=== PATIENT | female | born 1940 | race Caucasian/White ===

== ENCOUNTER 2017-08-08 15:43 | Inpatient (IN) | payer MEDICARE, OTHER ==
[~2017-08-08] VITALS: Ht 157.5 cm; Wt 59.1 kg
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
--- NOTE | ~2017-08-08 | OP ---
PATIENT NAME: MIKI JACKSON MEDICAL RECORD: [id number] :38 LOCATION:[facility] ADMISSION DATE:08/08/17 SURGEON: CAITIE CID MD DATE OF OPERATION: 08/09/2017 PREOPERATIVE DIAGNOSIS: Left proximal humerus fracture. POSTOPERATIVE DIAGNOSIS: Left proximal humerus fracture. PROCEDURE: Open reduction internal fixation of left proximal humerus fracture. SURGEON: Caitie Cid MD ANESTHESIA: General. INTRAOPERATIVE COMPLICATIONS: None. SUMMARY OF PATHOLOGIC FINDINGS: The patient had a reverse obliquity femoral neck fracture that required a combination of cables and plating for fixation. IMPLANTS USED: AxSOS 3 periarticular proximal humeral plate. OPERATIVE SUMMARY IN DETAIL: After obtaining the appropriate preoperative orthopedic surgery consent as well as anesthetic consultation, evaluation and clearance, the patient was brought to the operating room and placed on the operating table in supine position. After general laryngeal mask was administered, the patient was placed in beachchair position. All pressure points were padded. She was held firmly to the operating table using the vacuum pack suction system. Left upper extremity and shoulder were then prepped and draped in routine sterile fashion. The arm was held in the Trimano arm holding device. Deltopectoral incision was taken down to the level of the fracture itself. She had rotator cuff intact completely around the humeral head and had fractured in a reverse obliquity pattern just distal to that. The arm was held in a reduced position. A cable was placed to further stabilize the reduction and then an AxSOS plate was then placed with serial and sequential drill and fill using combination of both compression and locking screws. After final fixation was complete, fluoroscopy was taken that showed no screws heads or no screw ends were into the articular surface. Final radiographs were taken and submitted for radiologist review. The wound was copiously irrigated and closed with #1 Vicryl followed by 2-0 Vicryl and skin shabbir. Sterile dressings were applied. The patient was awakened and taken to the recovery room in stable condition. All final needle and sponge counts were correct. TRANSINT:[id number] Voice Confirmation ID: [id number] DOCUMENT ID: [id number] CAITIE CID MD at 1659 CC: [id number] DICTATION DATE: 08/09/17 1410 CLOUD ENGINEER: 08/09/171910 ADM IN [facility] [address] [id number]
[2017-08-08 16:29] LABS: BASOPHILS 0.7 % (0-2); EOSINOPHILS 3.2 % (0-7); HEMATOCRIT 33.8 % (36.0-48.0); HEMOGLOBIN 10.8 g/dL (12-16); IMMATURE GRANULOCYTES 0.4 % (0-5); LYMPHOCYTES 26.9 % (15-50); MCH 30.8 pg (26.0-34.0); MCV 96.3 fL (80.0-100.0); MEAN PLATELET VOLUME 11.1 fL (7.4-10.4); MONOCYTES 6.2 % (2-11); NEUTROPHILS 62.6 % (40-80); PLATELET COUNT 265 10x3/uL (130-400); RBC 3.51 10x6/uL (4.00-5.40); RDW 13.6 % (11.5-14.5); WBC 7.5 10x3/uL (4.8-10.8)
[2017-08-08 16:46] LABS: ALBUMIN 3.5 g/dL (3.4-5.0); ALKALINE PHOSPHATASE 87 U/L (46-116); ALT (SGPT) 15 U/L (10-68); BILIRUBIN - TOTAL 0.45 mg/dL (0.2-1.3); CALC OSMOLALITY 283 mosm/kg (275-300); CALCIUM 8.7 mg/dL (8.5-10.1); CARBON DIOXIDE 28.1 mmol/L (21.0-32.0); CHLORIDE - SERUM 104 mmol/L (98-107); CREATININE - SERUM 1.6 mg/dL (0.6-1.3); GLUCOSE 112 mg/dL (74-106); POTASSIUM - SERUM 5.2 mmol/L (3.5-5.1); PROTEIN - SERUM 6.5 g/dL (6.4-8.2); SODIUM 140 mmol/L (136-145); UREA NITROGEN 25 mg/dL (7-18); eGFR NON AFRICAN AMERICAN 33 mL/min (90-120)
[2017-08-08 16:55] LABS: PRO BNP 438 pg/mL (0-450); THYROID STIMULATING HORMONE 2.66 uIU/mL (0.36-3.74); TROPONIN-I < 0.017 ng/mL (0.000-0.060)
[2017-08-08 21:53] VITALS: BP 124/62
[2017-08-08 22:59] VITALS: BP 160/63; Ht 157.5 cm; Wt 59.1 kg
[2017-08-08 23:46] LABS: APPEARANCE HAZY (CLEAR); BILIRUBIN NEGATIVE (NEGATIVE); COLOR YELLOW (YELLOW); GLUCOSE 500 mg/dL (NEGATIVE); KETONE NEGATIVE (NEGATIVE); NITRITE POSITIVE (NEGATIVE); PROTEIN NEGATIVE (NEGATIVE); RED CELLS - URINE NONE SEEN /hpf (0-5); SPECIFIC GRAVITY 1.015 (1.005-1.020); UROBILINOGEN NORMAL (NORMAL); WHITE CELLS - URINE RARE /hpf (0-5)
[2017-08-08 23:47] LABS: BACTERIA MANY /hpf (NONE SEEN); EPITHELIAL CELLS RARE /hpf (0-5)
[2017-08-09 02:51] VITALS: BP 142/33
[2017-08-09 08:37] VITALS: BP 126/45
[2017-08-09 12:00] VITALS: BP 122/47
[2017-08-09 15:19] VITALS: BP 121/44
[2017-08-09 16:02] VITALS: BP 120/54
[2017-08-09 21:02] VITALS: BP 172/38
[2017-08-10] VITALS (15 sets, daily range): BP systolic 145–175; BP diastolic 45–75
[2017-08-11] VITALS: BP 166/53
[2017-08-11 04:00] VITALS: BP 135/53
[2017-08-11 05:29] LABS: HEMATOCRIT 33.2 % (36.0-48.0); HEMOGLOBIN 11.1 g/dL (12-16)
[2017-08-11 10:27] VITALS: BP 145/50
[2017-08-11 18:18] VITALS: BP 157/53
[2017-08-11 20:00] VITALS: BP 140/56
[2017-08-12 04:00] VITALS: BP 153/62
[2017-08-12] MEDS ORDERED: GLUCOPHAGE1000 MG PO ×2 (05:07→09:44)
[2017-08-12] MEDS ORDERED: FARXIGA10 MG PO ×2 (05:08→09:50)
[2017-08-12] MEDS ORDERED: REQUIP0.5 MG PO (05:09)
[2017-08-12] MEDS ORDERED: LEVOTHYROXINE50 MCG PO (05:09)
[2017-08-12] MEDS ORDERED: COZAAR50 MG PO ×2 (05:10→09:48)
[2017-08-12] MEDS ORDERED: ULTRAM50 MG PO (05:12)
[2017-08-12] MEDS ORDERED: ZOCOR40 MG PO ×2 (05:12→09:46)
[2017-08-12] MEDS ORDERED: NEURONTIN 400400 MG PO ×2 (05:13→09:41)
[2017-08-12] MEDS ORDERED: ATIVAN1 MG PO ×2 (05:14→09:48)
[2017-08-12] MEDS ORDERED: XALATAN 0.0052.5 ML EACH EYE (05:14)
[2017-08-12 06:58] LABS: HEMATOCRIT 33.1 % (36.0-48.0); HEMOGLOBIN 11.2 g/dL (12-16)
[2017-08-12] MEDS ORDERED: BACTRIM DS TABL1 TAB PO (08:15)
[2017-08-12 08:46] VITALS: BP 164/71
[2017-08-12] MEDS ORDERED: PROTONIX40 MG PO (09:41)
[2017-08-12] MEDS ORDERED: FELDENE 10 MG C10 MG PO (09:43)
[2017-08-12] MEDS ORDERED: CYMBALTA60 MG PO (09:43)
[2017-08-12] MEDS ORDERED: LEVO-T100 MCG PO (09:45)
[2017-08-12] MEDS ORDERED: INVOKANA100 MG PO (09:46)
[2017-08-12] MEDS ORDERED: IMODIUM2 MG (09:49)
[2017-08-12] MEDS ORDERED: FERROUS SULFAT325 MG PO (09:49)
[2017-08-12] MEDS ORDERED: TOUJEO SOL300 UNIT/1 SC (09:50)
[2017-08-12 13:10] VITALS: BP 156/58
[2017-08-12 16:33] VITALS: BP 154/61
[2017-08-12 20:00] VITALS: BP 161/61
[2017-08-12 20:15] VITALS: BP 161/61
[2017-08-13] VITALS: BP 146/54
[2017-08-13 05:15] VITALS: BP 160/63
[2017-08-13 08:52] VITALS: BP 142/52
== END 2017-08-13 08:45 | DRG 493 ==
LOC: D.ER 15:43 → D.EDHOLD 16:45 → D.MS 16:45
PROVIDERS: Family Medicine; Orthopaedic Surgery
PROC: 0PSD04Z Reposition Left Humeral Head with Internal Fixation Device, Open Approach (ICD-10-PCS; principal; 2017-08-09 10:45)
DX: S42.202A Unspecified fracture of upper end of left humerus, initial encounter for closed fracture (principal); D62 Acute posthemorrhagic anemia; N39.0 Urinary tract infection, site not specified; V48.4XXA Person boarding or alighting a car injured in noncollision transport accident, initial encounter; E11.9 Type 2 diabetes mellitus without complications; I10 Essential (primary) hypertension

== ENCOUNTER 2017-10-25 12:42 | Emergency (ER) | payer MEDICARE, OTHER ==
[~2017-10-25] VITALS: Ht 157.5 cm; Wt 63.6 kg
[~2017-10-25 12:42] MED LIST: ATIVAN1 MG PO; BACTRIM DS TABL1 TAB PO; COZAAR50 MG PO; CYMBALTA60 MG PO; FARXIGA10 MG PO; FELDENE 10 MG C10 MG PO; FERROUS SULFAT325 MG PO; GLUCOPHAGE1000 MG PO; IMODIUM2 MG; INVOKANA100 MG PO; LEVO-T100 MCG PO; LEVOTHYROXINE50 MCG PO; NEURONTIN 400400 MG PO; PROTONIX40 MG PO; REQUIP0.5 MG PO; TOUJEO SOL300 UNIT/1 SC; ULTRAM50 MG PO; XALATAN 0.0052.5 ML EACH EYE; ZOCOR40 MG PO
[2017-10-25 13:20] VITALS: Ht 157.5 cm; Wt 63.6 kg
[2017-10-25 17:03] VITALS: BP 128/71
== END 2017-10-25 15:38 | disposition home or self-care (01) ==
LOC: D.ER 12:42
DX: S49.92XA Unspecified injury of left shoulder and upper arm, initial encounter (principal); W19.XXXA Unspecified fall, initial encounter; Y93.89 Activity, other specified; Y92.019 Unspecified place in single-family (private) house as the place of occurrence of the external cause; S51.812A Laceration without foreign body of left forearm, initial encounter; K21.9 Gastro-esophageal reflux disease without esophagitis; E11.9 Type 2 diabetes mellitus without complications

== ENCOUNTER 2018-02-25 08:00 | Outpatient (CLI) | payer MEDICARE, OTHER ==
--- NOTE | ~2018-02-25 | EC ---
PATIENT:MIKI JACKSON DATE OF SERVICE: SEX: F MEDICAL RECORD: [id number] DATE OF : 38 LOCATION:[facility] AGE OF PATIENT: 77 ADMISSION DATE: 03/01/18 REFERRING PHYSICIAN: INTERPRETING PHYSICIAN: ANTONI FOFANA MD ECHOCARDIOGRAM REPORT ECHO CHARGES Date: CLINICAL DIAGNOSIS: ECHOCARDIOGRAPHIC MEASUREMENTS (adult normal given) AC root (d.<3.7cm) cm LV Septum d (<1.2 cm> cm Valve Excursion cm LV Septum (systole) cm Left Atria (s.<4.0cm> cm LVPW d(<1.2cm) cm RV (d.<2.3cm) cm LVPW (sytole) cm LV diastole(<5.6CM) cm MV E-F(>70mm/sec) cm LV systole cm LVOT Diameter cm MV exc.(>10mm) cm Est.ejection fraction (50-75%) % DOPPLER: LVIT cm/sec A cm/sec E cm/sec LA cm/sec RVSP mmHg LVOT cm/sec AOP1/2T m/s Asc. Ao cm/sec RVOT cm/sec RA cm/sec PA cm/sec AV Gradient Peak mmHg AV Mean mmHg AV Area cm MV Gradient Peak mmHg MV Mean mmHg MV Area cm COMMENTS: Stake Setter: Microbiology Teacher: KURTIS# Pericardial Effusion DATE OF SERVICE: 03/01/2018 PROCEDURE: Echocardiogram. FINDINGS: 1. Left ventricle chamber size is within normal limits. Left ventricular systolic function is normal. Overall ejection fraction estimated at 50%. 2. Left atrium, right atrium, right ventricle chamber size is within normal limits. 3. Valvular structures have normal structure and motion. ECHOCARDIOGRAM REPORT [id number] MIKI JACKSON 4. Doppler interrogation reveals mild mitral regurgitation, [id number] tricuspid regurgitation, no other valvular insufficiency or stenosis. Pulmonary systolic pressure is estimated at 40 mmHg. 5. No evidence of pericardial effusion or left ventricular thrombus. TRANSINT:[id number] Voice Confirmation ID: [id number] DOCUMENT ID: [id number] ANTONI FOFANA MD at 1059 CC: [id number] DICTATION DATE: 03/01/181803 FARM RANCHER: 03/01/182047 PRE IN [id number] [place] [address]
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
[2018-02-25] MEDS ORDERED: NORMODYNE / TR100 MG PO (11:10)
[2018-02-25 12:40] LABS: HEMATOCRIT 30.9 % (36.0-48.0); HEMOGLOBIN 9.8 g/dL (12-16); MCH 28.4 pg (26.0-34.0); MCHC 31.7 g/dL (31.0-37.0); MCV 89.6 fL (80.0-100.0); MEAN PLATELET VOLUME 10.9 fL (7.4-10.4); RBC 3.45 10x6/uL (4.00-5.40); RDW 16.1 % (11.5-14.5); WBC 11.2 10x3/uL (4.8-10.8)
[2018-02-26] MEDS ORDERED: BETAPACE 80 MG80 MG PO (14:16)
[2018-03-06 13:42] VITALS: BMI 2525.8
== END 2018-02-25 08:01 | disposition home or self-care (01) ==
LOC: D.OPS 08:00 → D.SDCHOLD 03-01 12:30 → EDSTATUS 03-01 12:45 → D.SDCHOLD 03-01 12:45
PROVIDERS: Anesthesiology
DX: T84.098A Other mechanical complication of other internal joint prosthesis, initial encounter (principal); Z01.812 Encounter for preprocedural laboratory examination; Z01.811 Encounter for preprocedural respiratory examination; Z01.810 Encounter for preprocedural cardiovascular examination

== ENCOUNTER 2018-02-25 14:02 | Observation (INO) | payer MEDICARE, OTHER ==
[~2018-02-25] VITALS: Ht 157.5 cm; Wt 63.2 kg
--- NOTE | ~2018-02-25 | HP ---
PATIENT: MIKI JACKSON MEDICAL RECORD: [id number] ACCOUNT: [id number] LOCATION:[address] : 38 ADMISSION DATE: 02/25/18 PCP: IVON LAMB MD HISTORY AND PHYSICAL EXAMINATION DIAGNOSES: 1. Atrial flutter. 2. Tachycardia. 3. Palpitations. 4. Angina. 5. Shortness of breath. HISTORY OF PRESENT ILLNESS: Mrs. Jackson presented to the hospital for preop evaluation for an elective orthopedic surgery and was found to have a heart rate in the 170s. Initially, she did not really feel anything, but shortness of breath, and she has been having some chest pain and chest pressure. Initially, she stated that she did not realize she was having any palpitations; however, now the more she has thought about it she has had palpitations for the past day and a half. The chest pressure and shortness of breath has been present for a day and a half as well. Hence, she must have gone out of rhythm, then she was seen the th of the month and was in rhythm at that time. She has not had a cardiac history. Her EKG, when she was tachycardic, showed lateral ST-T changes. We have since slowed her down with Cardizem and Betapace. Her chest pressure and shortness of breath have resolved. She remains in atrial flutter with a variable response at approximately 80. PHYSICAL EXAMINATION: GENERAL APPEARANCE: Well-nourished, well-developed, appears stated age. Level of distress, comfortable. PSYCHIATRIC: Mental status, alert, normal affect. Orientation, oriented to time, place and person. EYES: Lids and conjunctiva, noninjected. No discharge, no pallor. ENT: Lips, teeth, gums, normal dentition. Oropharynx, no cyanosis, no pallor. NECK: Carotid arteries, bilateral normal upstroke, no bruits, no thrills. JUGULAR VEINS: No jugular venous pressure or distention. CERVICAL LYMPH NODES: Nontender, nonenlarged. THYROID: Not enlarged. Nontender. No nodules. LUNGS: Respiratory effort, unlabored. CHEST: Normal curvature. No thoracic deformity. No chest wall tenderness. Percussion, resonant. Auscultation, clear. No wheezes, no rales, no rhonchi. CARDIOVASCULAR: Precordial exam, nondisplaced. No heaves or pericardial thrills. Rate and rhythm, regular. Heart sounds, normal S1, normal S2. No S3, no gallop, no rub. Systolic murmur, not heard. Diastolic murmur, not heard. EXTREMITIES: No cyanosis, no edema. Peripheral pulses, full and equal in all extremities, except as noted. No bruits appreciated. ABDOMEN: Soft, nondistended. Normal aorta. No bruit. Nontender. No masses. Liver, nontender, no hepatomegaly. Spleen, nontender, no splenomegaly. MUSCULOSKELETAL: No joint tenderness. No joint swelling. No erythema. NEUROLOGICAL: Normal gait, normal strength, normal tone. SKIN: Warm and dry. OVERALL IMPRESSION: New-onset atrial fibrillation associated with chest discomfort, most likely she has hemodynamically significant coronary artery disease. We will proceed with coronary angiography. Due to the fact that the symptomatology has been there for approximately 36 hours, we will proceed with HISTORY AND PHYSICAL [id number] MIKI JACKSON cardioversion as well. TRANSINT:[id number] Voice Confirmation ID: [id number] DOCUMENT ID: [id number] ANTONI FOFANA MD at 1059 CC: [id number] DICTATION DATE: 02/26/1855 RETAIL PHARMACIST: 02/26/18 1012 DIS IN 02/27/[address] [place] [address]
--- NOTE | ~2018-02-25 | OP ---
PATIENT NAME: MIKI JACKSON MEDICAL RECORD: [id number] :38 LOCATION:D.M2 D.2123 ADMISSION DATE:02/25/18 SURGEON: ANTONI FOFANA MD DATE OF OPERATION: 02/26/2018 PROCEDURES: 1. Left heart catheterization. 2. Selective coronary angiography. 3. Left ventriculogram. INDICATION: Cardiac dysrhythmia, angina, abnormal ECG. PROCEDURE IN DETAIL: After informed consent was obtained and after a detailed description of risks, benefits as well as alternative therapies, the patient elected to proceed with angiogram and heart catheterization. The right femoral area was prepped and draped in normal sterile fashion. Right femoral artery was cannulated via modified Seldinger technique with placement of 5-[place] sheath. All catheters exchanged through this sheath. FINDINGS: The left ventriculogram was performed in standard 30-degree [place] view, reveals good cardiac wall motion throughout all segments. Left chamber size is within normal limits. Left ventricular systolic function is mildly depressed. Overall ejection fraction estimated at 40%. SELECTIVE CORONARY ANGIOGRAPHY: Left main, left anterior descending, left circumflex, and right coronary artery are smooth-walled vessels with no angiographic evidence of coronary artery disease. OVERALL IMPRESSION: 1. No angiographic evidence of coronary artery disease. 2. Normal left heart pressures. 3. Normal left ventricular systolic function. Her symptomatology is secondary to the dysrhythmia. Continue medical management of the dysrhythmia. TRANSINT:[id number] Voice Confirmation ID: [id number] DOCUMENT ID: [id number] ANTONI FOFANA MD at 1059 CC: [id number] DICTATION DATE: 02/26/18 1247 ENTRY LEVEL ACCOUNT MANAGER: 02/26/18 1308 DIS IN 02/27/18 [address] [place] [address]
--- NOTE | ~2018-02-25 | DS ---
PATIENT:MIKI JACKSON :38 MEDICAL RECORD: [id number] DISCHARGE SUMMARY ADMISSION DATE: 02/25/18 DISCHARGE DATE: 02/27/18 DATE OF DISCHARGE: 02/26/2018 DISCHARGE DIAGNOSES: 1. Atrial fibrillation. 2. Shortness of breath, dyspnea on exertion. 3. Palpitations. 4. Tachycardia. HOSPITAL COURSE: Ms. Jackson presents with a heart rate of 170, found to be in atrial fibrillation, was given sotalol, converted to sinus rhythm. She was having anginal symptomatology; however, cardiac catheterization revealed no significant coronary artery disease, was discharged home with the addition of sotalol 80 mg b.i.d. to her medical regimen. Follow up with [facility] in 2-3 weeks. TRANSINT:[id number] Voice Confirmation ID: [id number] DOCUMENT ID: [id number] ANTONI FOFANA MD at 1059 CC: [id number] DICTATION DATE: 02/26/18 1246 ONLINE ADVERTISING MANAGER: 02/26/18 2247 DIS IN 02/27/18 [facility] [address] [place] [address]
--- NOTE | ~2018-02-25 | MORECARE ---
CASE MANAGEMENT DISCHARGE SUMMARY PATIENT: MIKI JACKSON UNIT: [id number] ADM DATE: 02/25/18 AGE: 77 : 39 SEX: F ROOM/BED: D.2122 AUTHOR: ANN DURANT PHYSICIAN: REFERRING PHYSICIAN: ANTONI FOFANA MD DATE OF SERVICE: 02/26/18 Discharge Plan Patient Name: MIKI JACKSON Facility: [facility]:[place] : 1940 Planned Disposition: Home Anticipated Discharge Date: 02/26/18 Discharge Date: Expected LOS: 1 Initial Reviewer: [id number] Initial Review Date: 02/26/2018 Generated: 02/26/18 4:54 pm Patient Name: MIKI JACKSON Page [phone] at 1554 All edits/amendments must be made on the electronic document DICTATION DATE: 02/26/18 1553 EDUCATION SALES CONSULTANT: ADAN 02/26/18 1553 RPT#: [id number] DC DATE: STATUS: ADM IN [facility] [address] [place] [address] END OF REPORT
--- NOTE | ~2018-02-25 | HEMODYNAMI ---
PATIENT:MIKI JACKSON MEDICAL RECORD: [id number] : 38 [facility] [id number] ADMISSION DATE: 02/25/18 Generatedon:02/26/201812:49 Patient name: MIKI JACKSON Patient #: [id number] SSN: DO B: 1940 Date of study: 02/26/2018 Page: Of Hemodynamic Procedure Report Patient Data Patient Demographics Procedure consent was obtained First Name: MIKI Gender: Female Last Name: RENETTA : 1940 Middle Initial: E Age: 77 year(s) Patient #: [id number] Race: Additional ID: [id number] Contact details Address: [address] [address] State: [place] City: [place] Zip code: [address] Admission Admission Data Admission Date: 02/25/2018 Admission Time: 14:02 Room #: D.2123 Lab Results Lab Result Date: 02/26/2018 Lab Result Time: 0:00 Biochemistry Name Units Result Min Max BUN mg/dl 17 --(---*)-- 7 18 Creatinine mg/dl 1.9 --(----)-* 0.6 1.3 CBC Name Units Result Min Max Hemoglobin g/dl 9.7 *-(----)-- 13.5 17.5 Procedure Procedure Types Cath Procedure Diagnostic Procedure [facility] w/Coronaries Cardioversion External Procedure Description Procedure Date Procedure Date: 02/26/2018 Procedure Start Time: 12:37 Procedure End Time: 12:48 Procedure Staff Name Function Bishnu Merritt MD Performing Physician Manjeet Tierney RT Monitor Roz Junior RT Scrub Jose Quintana RN Nurse Procedure Data Cath Procedure Fluoroscopy Diagnostic fluoroscopy Total fluoroscopy Time: 1 time: 1 min min Diagnostic fluoroscopy Total fluoroscopy dose: 205 dose: 205 mGy mGy Contrast Material Contrast Material Type Amount (ml) Isovue 300 43 Entry Location Entry Primary Successful Side Size Upsize Upsize Entry Closure Succes sful Closure Location (Fr) 1 (Fr) 2 (Fr) Remarks Device Remarks Femoral Right 5 Fr Exoseal artery Estimated blood loss: 10 ml Diagnostic catheters Device Type Used For End Catheter Placement MULTIPACK Pigtail 5 Fr catheter MULTIPACK JL 4.0 5Fr Procedure catheter MULTIPACK 3DRC 5Fr Procedure catheter DIAGNOSTIC JL 3.5 5Fr Procedure catheter ([id number]) Procedure Medications Medication Administration Route Dosage 0.9% NaCl I.V. 100 ml/hr Oxygen etCO2 Nasal cannula 2 l/min Heparin Flush Bag added to field 2 bags (1000units/500ml NS) Lidocaine 2% added to field 20 Refer to Anesthesia Notes for Sedation Medications Hemodynamics Rest HGB: 9.7 (g/dl) Heart Rate: 58 (bpm) Snapshots Pre Cath Intra NCS Post Cath Vital Signs Time Heart Resp SPO2 etCO2 NIBP Rhythm Pain Sedation Rate (ipm) (%) (mmHg) (mmHg) Status Level (bpm) 12:18:25 64 18 97 0 112/33(93) NSR 0 (11) 10(A) , No pain 12:22:39 59 18 94 0 111/50(82) NSR 0 (11) 10(A) , No pain 12:26:48 56 17 93 0 104/65(77) NSR 0 (11) 10(A) , No pain 12:31:02 55 11 92 0 96/41(78) NSR 0 (11) 10(A) , No pain 12:35:12 53 11 95 0 93/34(72) NSR 0 (11) 9(A) , No pain 12:39:22 54 18 93 0 89/41(66) NSR 0 (11) 9(A) , No pain 12:43:30 50 23 95 0 76/34(61) NSR 0 (11) 9(A) , No pain 12:47:34 52 10 97 0 90/39(62) NSR 0 (11) 9(A) , No pain Medications Time Medication Route Dose Verified Delivered Reason Notes Eff ectiveness by by 12:18:48 0.9% NaCl I.V. 100 Jose Jose Per ml/hr Lilian Quintana physician RN RN 12:19:04 Oxygen etCO2 2 Jose Jose Per Nasal l/min Lilian Quintana physician cannula RN RN 12:19:17 Heparin Flush added 2 Jose Jose used for Bag to bags Lilian Quintana procedure (1000units/500ml field RN RN NS) 12:19:29 Lidocaine 2% added 20ml Jose Jose for local to vial Lilian Quintana anesthetic field RN RN 12:31:31 Refer to Jose Garcia for Anesthesia Notes Lilian Quintana sedation for Sedation RN RN Medications Procedure Log Time Note 11:57:15 Jose Quintana RN sent for patient. Start room use. 11:57:16 Time tracking: Regular hours (M-F 7:00 - 5:00) 11:57:20 Plan of Care:Hemodynamics will remain stable., Cardiac rhythm will remain stable., Comfort level will be maintained., Respiratory function will remain adequate., Patient/ family verbilizes understanding of procedure., Procedure tolerated without complication., Recovers from procedure without complications.. 12:09:46 Informed consent obtained and on chart 12:11:52 Patient received from Med II to [facility] 2 Alert and oriented. Tansferred to table in Supine position. 12:12:02 Warm blankets applied, and briseida hugger turned on for patient comfort. 12:12:02 Correct patient and procedure confirmed by team. 12:17:07 Vital chart was started 12:18:48 0.9% NaCl 100 ml/hr I.V. was administered by Jose Quintana RN; Per physician; 12:19:04 Oxygen 2 l/min etCO2 Nasal cannula was administered by Jose Quintana RN; Per physician; 12:19:17 Heparin Flush Bag (1000units/500ml NS) 2 bags added to field was administered by Jose Quintana RN; used for procedure; 12:19:29 Lidocaine 2% 20ml vial added to field was administered by Jose Quintana RN; for local anesthetic; 12:23:50 Baseline sample Acquired. 12:23:59 Rhythm: sinus rhythm 12:24:15 Full Disclosure recording started 12:24:38 H&P Date Dictated: 02/26/2018 Within 30 days and on chart., New H&P dictated by physician.. 12:24:52 Pre-procedure instructions explained to patient. 12:24:53 Pre-op teaching completed and patient verbalized understanding. 12:24:58 Family unavailable. 12:25:02 Patient NPO since Midnight. 12:25:20 Previous problem with sedation/anesthesia? No ? 12:25:26 Patient diabetic? Yes. 12:25:30 If diabetic: On Metformin? Yes 12:25:50 Patient not . Patient is over age 55. 12:25:53 Snore? Yes 12:25:55 Sleep apnea? No 12:26:03 Deviated septum? No 12:26:04 Opens mouth fully? Yes 12:26:05 Sticks out tongue? Yes 12:26:12 Airway obstruction? Yes ASTHMA 12:26:19 Dentures? Yes OUT 12:26:45 Patient pain scale 0/10 ?. 12:27:01 IV patent on arrival in right forearm with 0.9% NaCl at [facility]. 12::56 Lab Result : BUN 17 mg/dl 12:: Lab Result : Hemoglobin 9.7 g/dl 12::56 Lab Result : Creatinine 1.9 mg/dl 12::59 Lab results completed and on chart. 12:30:09 Right groin area was prepped with chlora-prep and draped in sterile fashion 12:30:12 Alarms reviewed by R. N. 12:30:13 Sharps counted by scrub and verified by R.N. 12:30:26 Physician arrived 12::26 --------ALL STOP TIME OUT------ 12::27 Final Timeout: patient, procedure, and site verified with staff and physician. All members of the team are in agreement. 12:30:30 Right groin site verified by team. 12:30:44 Physical assessment completed. ASA score P 2 - A patient with mild systemic disease as per Bishnu Merritt MD. 12:30:49 Sedation plan: TIVA Medication:Propofol 12:31:31 Refer to Anesthesia Notes for Sedation Medications was administered by Jose Quintana RN; for sedation; 12:31:31 Use device set Femoral Dx 12:31:32 ACIST Syringe (48555) opened to sterile field. 12:31:33 Bag Decanter () opened to sterile field. 12:31:34 Medline Cath Pack ([id number]) opened to sterile field. 12:31:35 DIAGNOSTIC WIRE .035 260cm J wire (982172) opened to sterile field. 12:31:38 ACIST Hand Control (29958) opened to sterile field. 12:31:39 ACIST Manifold (98826) opened to sterile field. 12:31:40 DIAGNOSTIC Multipack 5Fr catheter set ([id number]) opened to sterile field. 12:31:40 Tegaderm 4 x 4 (1626W) opened to sterile field. 12:31:44 SHEATH Prelude 5Fr 0.035 ([id number]-89-035) opened to sterile field. 12:33:14 Zero performed for pressure channel P1 12:33:17 Zero performed for pressure channel P1 12:33:20 Zero performed for pressure channel P1 12:37:03 Procedure started. 12:37:11 Local anesthetic to right femoral artery with Lidocaine 2% by Bishnu Merritt MD.INITIAL ACCESS ONLY 12:37:32 A 5 Fr sheath was inserted into the Right Femoral artery 12:38:10 A MULTIPACK Pigtail 5 Fr catheter was advanced over the wire and used for . 12:38:39 LV gram done using SANABRIA 12:38:47 EF : 35 % 12:38:50 Catheter removed. 12:39:05 A MULTIPACK JL 4.0 5Fr catheter was advanced over the wire and used for Procedure. 12:39:44 Catheter removed. unable to cannulate vessel. 12:40:01 A MULTIPACK 3DRC 5Fr catheter was advanced over the wire and used for Procedure. 12:40:24 RCA angiography performed. 12:40:36 Catheter removed. 12:40:47 A DIAGNOSTIC JL 3.5 5Fr catheter ([id number]) was advanced over the wire and used for Procedure. 12:41:06 LCA angiography performed. 12:41:24 EXOSEAL 5Fr (EX500) opened to sterile field. 12:41:28 Catheter removed. 12:41:58 Sheath removed intact; hemostasis achieved with Exoseal to the Right Femoral artery. 12:42:01 Procedure ended.(Physican Out) 12:42:13 Fluoroscopy time 01.00 minutes. 12:42:22 Fluoroscopy dose: 205 mGy 12:42:22 Flurop Dose total: 205 12:42:29 Contrast amount:Isovue 300 43ml. 12:42:33 Sharps counted by scrub and verified by R.N. 12:46:53 Insertion/operative site no bleeding no hematoma. 12:47:16 Post-op/insertion site Right Femoral artery dressed using a 4 x 4 and Tegaderm. 12:47:21 Post right femoral artery:stable 12:47:26 Post Procedure Pulses reassessed and unchanged 12:47:38 Post-procedure physical assessment completed. ASA score P 2 - A patient with mild systemic disease as per Bishnu Merritt MD. 12:47:44 Post procedure rhythm: sinus rhythm 12:47:55 Estimated blood loss: 10 ml 12:47:59 Post procedure instruction explained to patient.Patient verbalizes understanding. 12:48:20 Patient needs reinforcement of post procedure teaching. 12:48:22 Procedure and supply charges have been captured, reviewed, submitted and are correct. 12:48:30 Vital chart was stopped 12:48:31 See physician's report for complete and final results. 12:48:34 Report given to [facility]. 12:48:41 Patient transfered to [facility] with Bed. 12:48:46 Procedure ended. 12:48:46 Full Disclosure recording stopped 12:48:51 End room use (Document Last) Device Usage Item Name Manufacture Quantity Catalog Number Hospital Part Current M inimal Lot# / Charge Number Stock Stock Serial# Code ACIST Syringe Acist 1 35979 112844 826259 [id number] 2 0 (37693) [employer] Bag Decanter Microtek 1 2001S 343712 15171 642524 5 () Medical Inc. Medline Cath Medline 1 [id number] 365753 46266 634987 5 Pack ([id number]) DIAGNOSTIC WIRE [facility] Eulalio 1 982155 293377 210139 568399 3 0 .035 260cm J wire (623533) ACIST Hand Acist 1 82806 446599 350596 351722 5 Control (24837) [employer] ACIST Manifold Acist 1 09515 234471 766146 625755 5 (38337) [employer] DIAGNOSTIC Cardinal 1 [id number] 972110 04865 899401 3 0 Multipack 5Fr Health catheter set ([id number]) Tegaderm 4 x 4 3M 1 1626W 600213 332965 581541 5 (1626W) SHEATH Prelude Merit 1 DTK-2C-[id number] 481063 154877 178330 5 5Fr 0.035 Medical (ILU-4N-84-035) MULTIPACK Cardinal 1 015455 5 Pigtail 5 Fr Health catheter MULTIPACK JL Cardinal 1 053616 5 4.0 5Fr Health catheter MULTIPACK 3DRC Cardinal 1 802056 5 5Fr catheter Health DIAGNOSTIC JL Cardinal 1 [id number] 112316 792121 168712 5 3.5 5Fr Health catheter (307283V) EXOSEAL 5Fr Cardinal 1 EX500 740680 053844 524664 1 0 (EX500) Health Signature Audit Lolita Stage Time Signature Unsigned Intra-Procedure 02/26/2018 Manjeet Tierney 12:49:31 PM RT(R) (CV) Signatures Monitor : Manjeet Tierney RT Signature : Date : Time : [address] [place] [address]
[~2018-02-25 14:02] MED LIST changes: +NORMODYNE / TR100 MG PO
[2018-02-25 16:03] LABS: BASOPHILS 0.6 % (0-2); EOSINOPHILS 1.1 % (0-7); HEMATOCRIT 30.8 % (36.0-48.0); HEMOGLOBIN 9.7 g/dL (12-16); IMMATURE GRANULOCYTES 0.3 % (0-5); LYMPHOCYTES 30.1 % (15-50); MCH 28.4 pg (26.0-34.0); MCHC 31.5 g/dL (31.0-37.0); MCV 90.3 fL (80.0-100.0); MEAN PLATELET VOLUME 11.2 fL (7.4-10.4); NEUTROPHILS 60.9 % (40-80); PLATELET COUNT 366 10x3/uL (130-400); RBC 3.41 10x6/uL (4.00-5.40); RDW 16.1 % (11.5-14.5); WBC 11.4 10x3/uL (4.8-10.8)
[2018-02-25 16:19] LABS: ANION GAP 18.6 mmol/L (8-16); CALCIUM 9.5 mg/dL (8.5-10.1); CARBON DIOXIDE 24.4 mmol/L (21.0-32.0); CREATININE - SERUM 1.9 mg/dL (0.6-1.3); TROPONIN-I 0.018 ng/mL (0.000-0.060)
[2018-02-25 16:56] VITALS: BP 148/85
[2018-02-25 17:11] VITALS: BP 148/80; BMI 25.1
[2018-02-25 20:45] VITALS: BP 126/73
[2018-02-26] VITALS (7 sets, daily range): BP systolic 108–153; BP diastolic 39–61; Ht 157.5 cm; Wt 63.2 kg
[2018-02-26] MEDS ORDERED: BETAPACE 80 MG80 MG PO (14:16)
[2018-02-27] VITALS: BP 168/66
[2018-02-27 04:00] VITALS: BP 159/68
[2018-02-27 07:58] VITALS: BP 158/84
[2018-02-27 12:05] VITALS: BP 152/75
== END 2018-02-27 12:32 | disposition home or self-care (01) ==
LOC: D.SDCHOLD 14:02 → OBSVTIME 14:02 → D.M2 15:07
PROVIDERS: Internal Medicine Interventional Cardiology
DX: I48.92 Unspecified atrial flutter (principal); I48.91 Unspecified atrial fibrillation; R94.31 Abnormal electrocardiogram [ECG] [EKG]; R00.0 Tachycardia, unspecified

== ENCOUNTER 2018-02-28 20:23 | Inpatient (IN) | payer MEDICARE, OTHER ==
[~2018-02-28] VITALS: Ht 157.5 cm; Wt 63.5 kg
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
--- NOTE | ~2018-02-28 | MORECARE ---
CASE MANAGEMENT DISCHARGE SUMMARY PATIENT: MIKI JACKSON UNIT: [id number] ADM DATE: 02/28/18 AGE: 77 : 39 SEX: F ROOM/BED: D.2125 AUTHOR: ANN DURANT PHYSICIAN: REFERRING PHYSICIAN: ERIC BANKS MD DATE OF SERVICE: 03/01/18 Discharge Plan Patient Name: MIKI JACKSON Facility: [facility]:[place] : 1940 Planned Disposition: Home Anticipated Discharge Date: Discharge Date: Expected LOS: Initial Reviewer: [id number] Initial Review Date: 02/28/2018 Generated: 03/01/18 5:58 pm DCPIA - Discharge Planning Initial Assessment Updated by [id number]: Damir Bhat on 03/01/18 4:57 pm * Is the patient Alert and Oriented? Yes * How many steps to enter\exit or inside your home? * PCP DR. IVON LAMB * Pharmacy [facility] * Preadmission Environment Home with Family * ADLs Independent * Equipment Cane * Other Equipment NO MEDICAL EQUIPMENT PROVIDER PREFERENCE * List name and contact numbers for known caregivers / representatives who currently or will assist patient after discharge: VINCENT JACKSON, SPOUSE, JAMIL SCHAEFFER, DTR, KELSIE BETTS, DTR/POMert, * Verbal permission to speak to the caregivers and representatives has been obtained from the patient. Yes * Community resources currently utilized None * Please name any agencies selected above. NONE * Additional services required to return to the preadmission environment? No * Can the patient safely return to the preadmission environment? Yes * Has this patient been hospitalized within the prior 30 days at any hospital? Yes Patient Name: MIKI JACKSON Page [phone] at 1658 All edits/amendments must be made on the electronic document DICTATION DATE: 03/01/181657 WELDING LEAD BURNER: ADAN 03/01/181657 RPT#: [id number] DC DATE: STATUS: ADM IN [facility] [address] [place] [address] END OF REPORT
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
[~2018-02-28 20:23] MED LIST changes: +BETAPACE 80 MG80 MG PO
[2018-02-28 21:00] VITALS: BP 126/70
[2018-02-28 21:23] LABS: ALBUMIN 2.8 g/dL (3.4-5.0); ALKALINE PHOSPHATASE 115 U/L (46-116); BILIRUBIN - TOTAL 1.21 mg/dL (0.2-1.3); CALC OSMOLALITY 281 mosm/kg (275-300); CALCIUM 8.3 mg/dL (8.5-10.1); CARBON DIOXIDE 20.9 mmol/L (21.0-32.0); CHLORIDE - SERUM 99 mmol/L (98-107); CREATININE - SERUM 1.9 mg/dL (0.6-1.3); GLUCOSE 181 mg/dL (74-106); PROTEIN - SERUM 6.4 g/dL (6.4-8.2); SODIUM 135 mmol/L (136-145); UREA NITROGEN 31 mg/dL (7-18); eGFR NON AFRICAN AMERICAN 27 mL/min (90-120)
[2018-02-28 21:27] LABS: BASOPHILS 0.2 % (0-2); EOSINOPHILS 0 % (0-7); HEMATOCRIT 30.2 % (36.0-48.0); HEMOGLOBIN 9.8 g/dL (12-16); IMMATURE GRANULOCYTES 0.2 % (0-5); LYMPHOCYTES 14.4 % (15-50); MCH 28.2 pg (26.0-34.0); MCHC 32.5 g/dL (31.0-37.0); MEAN PLATELET VOLUME 12.2 fL (7.4-10.4); MONOCYTES 7.6 % (2-11); NEUTROPHILS 77.6 % (40-80); PLATELET COUNT 334 10x3/uL (130-400); RBC 3.47 10x6/uL (4.00-5.40); RDW 17.6 % (11.5-14.5); WBC 12.9 10x3/uL (4.8-10.8)
[2018-02-28 21:30] LABS: APPEARANCE CLEAR (CLEAR); BILIRUBIN 1+ (NEGATIVE); COLOR YELLOW (YELLOW); GLUCOSE 1000 mg/dL (NEGATIVE); KETONE MODERATE mg/dL (NEGATIVE); NITRITE NEGATIVE (NEGATIVE); PROTEIN NEGATIVE (NEGATIVE)
[2018-02-28 21:32] LABS: BACTERIA MODERATE /hpf (NONE SEEN); RED CELLS - URINE 0-5 /hpf (0-5); WHITE CELLS - URINE 0-5 /hpf (0-5)
[2018-02-28 21:43] LABS: CREATINE KINASE 422 UL (21-215); LIPASE 68 U/L (73-393); MAGNESIUM - SERUM 1.7 mg/dL (1.8-2.4); POTASSIUM - SERUM 4.4 mmol/L (3.5-5.1); PRO BNP 30988 pg/mL (0-450); THYROID STIMULATING HORMONE 9.74 uIU/mL (0.36-3.74)
[2018-02-28 21:44] LABS: ALT (SGPT) 276 U/L (10-68)
[2018-02-28 21:45] LABS: CKMB 5.7 U/L (0.0-3.6); TROPONIN-I 0.102 ng/mL (0.000-0.060)
[2018-02-28 21:47] VITALS: BP 130/72
[2018-03-01 00:48] VITALS: BP 127/68; BMI 25.7
[2018-03-01 01:20] VITALS: BP 127/68
[2018-03-01 05:15] VITALS: BP 120/69
[2018-03-01 08:14] VITALS: BP 130/56
[2018-03-01 13:58] VITALS: BMI 25.7
[2018-03-01 15:26] VITALS: Ht 157.5 cm; Wt 63.5 kg
[2018-03-01 16:04] VITALS: BP 128/75
[2018-03-01 16:19] LABS: % SATURATION 4 % (15-55); IRON 17 ug/dl (35-150); TOTAL IRON BIND CAPACITY 345 ug/dl (260-445); UNSAT IRON BIND CAPACITY 328 ug/dl (150-375)
[2018-03-01 22:03] VITALS: BP 112/55; BP 116/68
[2018-03-02 01:13] VITALS: BP 107/59
[2018-03-02 05:01] VITALS: BP 90/55
[2018-03-02 06:29] LABS: BASOPHILS 0.2 % (0-2); EOSINOPHILS 1.1 % (0-7); HEMATOCRIT 34.4 % (36.0-48.0); IMMATURE GRANULOCYTES 0.5 % (0-5); LYMPHOCYTES 36.7 % (15-50); MCH 27.8 pg (26.0-34.0); MCV 87.1 fL (80.0-100.0); MEAN PLATELET VOLUME 10.7 fL (7.4-10.4); MONOCYTES 10.4 % (2-11); NEUTROPHILS 51.1 % (40-80); PLATELET COUNT 390 10x3/uL (130-400); RBC 3.95 10x6/uL (4.00-5.40); RDW 16.5 % (11.5-14.5); WBC 10.9 10x3/uL (4.8-10.8)
[2018-03-02 06:59] LABS: CALCIUM 8.3 mg/dL (8.5-10.1); CREATININE - SERUM 2.1 mg/dL (0.6-1.3)
[2018-03-02 07:01] LABS: ANION GAP 13.5 mmol/L (8-16); CARBON DIOXIDE 27.7 mmol/L (21.0-32.0); POTASSIUM - SERUM 3.2 mmol/L (3.5-5.1)
[2018-03-02 08:13] VITALS: BP 105/40
[2018-03-02 11:35] VITALS: BP 104/42
[2018-03-02 15:28] VITALS: BP 128/44
[2018-03-02 21:01] VITALS: BP 116/48
[2018-03-03] VITALS: BP 116/47
[2018-03-03 04:59] LABS: BASOPHILS 0.2 % (0-2); EOSINOPHILS 0.6 % (0-7); HEMATOCRIT 31.2 % (36.0-48.0); HEMOGLOBIN 9.9 g/dL (12-16); IMMATURE GRANULOCYTES 0.5 % (0-5); MCH 27.6 pg (26.0-34.0); MCHC 31.7 g/dL (31.0-37.0); MCV 86.9 fL (80.0-100.0); MEAN PLATELET VOLUME 10.2 fL (7.4-10.4); MONOCYTES 8.8 % (2-11); NEUTROPHILS 68.9 % (40-80); RBC 3.59 10x6/uL (4.00-5.40); RDW 16.1 % (11.5-14.5); WBC 10.6 10x3/uL (4.8-10.8)
[2018-03-03 05:02] LABS: PLATELET COUNT 311 10x3/uL (130-400)
[2018-03-03 05:15] LABS: ANION GAP 12.3 mmol/L (8-16); CALCIUM 7.9 mg/dL (8.5-10.1); CARBON DIOXIDE 27.4 mmol/L (21.0-32.0); CREATININE - SERUM 2.2 mg/dL (0.6-1.3)
[2018-03-03 05:30] LABS: POTASSIUM - SERUM 3.7 mmol/L (3.5-5.1)
[2018-03-03 06:11] VITALS: BP 85/49
[2018-03-03 08:30] VITALS: BP 109/48
[2018-03-03 09:19] LABS: FOLATE (FOLIC ACID) - SERUM 13.2 ng/mL (>3.0)
[2018-03-03 11:37] VITALS: BP 109/44
[2018-03-03 15:34] VITALS: BP 93/45
[2018-03-03 20:33] VITALS: BP 103/51
[2018-03-04 00:34] VITALS: BP 110/47
[2018-03-04 06:14] VITALS: BP 115/45
[2018-03-04 06:37] LABS: BASOPHILS 0.2 % (0-2); EOSINOPHILS 2.4 % (0-7); HEMATOCRIT 31.4 % (36.0-48.0); HEMOGLOBIN 9.8 g/dL (12-16); IMMATURE GRANULOCYTES 0.2 % (0-5); LYMPHOCYTES 24.8 % (15-50); MCH 27.7 pg (26.0-34.0); MCHC 31.2 g/dL (31.0-37.0); MCV 88.7 fL (80.0-100.0); MEAN PLATELET VOLUME 10.2 fL (7.4-10.4); MONOCYTES 10.4 % (2-11); PLATELET COUNT 348 10x3/uL (130-400); RBC 3.54 10x6/uL (4.00-5.40); RDW 16.2 % (11.5-14.5); WBC 8.3 10x3/uL (4.8-10.8)
[2018-03-04 06:52] LABS: ANION GAP 11.9 mmol/L (8-16); CALCIUM 8.1 mg/dL (8.5-10.1); CARBON DIOXIDE 30.2 mmol/L (21.0-32.0); CREATININE - SERUM 2.3 mg/dL (0.6-1.3)
[2018-03-04 06:53] LABS: POTASSIUM - SERUM 3.1 mmol/L (3.5-5.1)
[2018-03-04 07:49] VITALS: BP 124/48
[2018-03-04 11:33] VITALS: BP 111/51
[2018-03-04 15:57] VITALS: BP 107/41
[2018-03-04 19:00] VITALS: BP 108/36
[2018-03-05 02:11] VITALS: BP 113/46
[2018-03-05 04:00] VITALS: BP 112/42
[2018-03-05 06:17] LABS: BASOPHILS 0.3 % (0-2); EOSINOPHILS 2.5 % (0-7); HEMATOCRIT 31.9 % (36.0-48.0); IMMATURE GRANULOCYTES 0.5 % (0-5); LYMPHOCYTES 22.4 % (15-50); MCH 28.1 pg (26.0-34.0); MCHC 31.3 g/dL (31.0-37.0); MCV 89.6 fL (80.0-100.0); MEAN PLATELET VOLUME 10.4 fL (7.4-10.4); MONOCYTES 11.7 % (2-11); NEUTROPHILS 62.6 % (40-80); PLATELET COUNT 354 10x3/uL (130-400); RBC 3.56 10x6/uL (4.00-5.40); RDW 16.4 % (11.5-14.5); WBC 7.9 10x3/uL (4.8-10.8)
[2018-03-05 06:38] LABS: ANION GAP 13.4 mmol/L (8-16); CALCIUM 8.8 mg/dL (8.5-10.1); CARBON DIOXIDE 31.5 mmol/L (21.0-32.0); CREATININE - SERUM 2.3 mg/dL (0.6-1.3)
[2018-03-05 07:02] LABS: POTASSIUM - SERUM 2.9 mmol/L (3.5-5.1)
[2018-03-05 09:00] VITALS: BP 132/77
[2018-03-05] MEDS ORDERED: LEVAQUIN750 MG PO (11:32)
[2018-03-05] MEDS ORDERED: SYNTHROID75 MCG PO (11:34)
[2018-03-05 13:29] VITALS: BP 100/41
[2018-03-05 16:06] VITALS: BP 110/43
== END 2018-03-05 18:30 | DRG 291 ==
LOC: D.ER 20:23 → D.M2 22:19
PROVIDERS: Family Medicine; Internal Medicine Nephrology
DX: I11.0 Hypertensive heart disease with heart failure (principal); G93.41 Metabolic encephalopathy; J18.9 Pneumonia, unspecified organism; N39.0 Urinary tract infection, site not specified; N17.9 Acute kidney failure, unspecified; E87.1 Hypo-osmolality and hyponatremia; I50.23 Acute on chronic systolic (congestive) heart failure; J45.909 Unspecified asthma, uncomplicated; E11.40 Type 2 diabetes mellitus with diabetic neuropathy, unspecified; I48.0 Paroxysmal atrial fibrillation; Z79.01 Long term (current) use of anticoagulants; K21.9 Gastro-esophageal reflux disease without esophagitis; H40.9 Unspecified glaucoma; F32.9 Major depressive disorder, single episode, unspecified; F41.9 Anxiety disorder, unspecified; E03.9 Hypothyroidism, unspecified; R74.8 Abnormal levels of other serum enzymes; D50.9 Iron deficiency anemia, unspecified; E83.42 Hypomagnesemia; F43.29 Adjustment disorder with other symptoms; Z86.718 Personal history of other venous thrombosis and embolism

== ENCOUNTER 2018-03-05 19:02 | Inpatient (IN) | payer MEDICARE, OTHER ==
[~2018-03-05] VITALS: Ht 157.5 cm; Wt 6257.8 kg
--- NOTE | ~2018-03-05 | RHP ---
PATIENT: MIKI JACKSON MEDICAL RECORD: [id number] ACCOUNT: [id number] LOCATION:[facility]1114 : 38 ADMISSION DATE: 03/05/18 REHABILITATION HISTORY AND PHYSICAL EXAMINATION POST ADMISSION PHYSICIAN EXAMINATION DATE OF ADMISSION: 03/05/2018 ADMITTING DIAGNOSIS: Acute metabolic encephalopathy. HISTORY OF PRESENT ILLNESS: The patient is a 77-year-old female patient who is admitted with a nontraumatic brain injury, acute encephalopathy. She apparently was hospitalized and underwent a left heart cath, which actually showed a pretty normal vessels. She was noted to have generalized weakness, fatigue, confusion. Her symptoms had been present for approximately 2 to 3 days. She was noted to have an elevated white count. She apparently was diagnosed with either interstitial edema or pneumonia at that time. CT of her chest showed some compression atelectasis, interstitial thickening and pulmonary edema. They thought this would be more likely related to congestive heart failure than pneumonia. She has got a past medical history of hypertension, diabetes, AFib, hypothyroidism, gastric bypass, gastroesophageal reflux disease, anxiety and depression. She was admitted for telemetry and placed on home medications, were appropriate, and also electrolyte replacement protocol. The patient also had psych consult per her daughter's request for an alleged suicide ideation back in August. Dr. Dao saw the patient and felt like she was not a threat to herself or others. Previously, she lived with her spouse, independent with her ADLs and mobility. Did use a cane at times for steadiness. She is on continuous O2 at 2 liters. photogrammetric stereo compiler has shown a normal sinus rhythm. She does have some barriers to discharge at this time including intermittent confusion, poor balance, unsteady gait and she is a high fall risk. She has had 2 falls within the last 2 weeks. The patient will definitely benefit from inpatient rehabilitation. She hopefully can regain her strength and return home at her prior level of functioning or better. COMORBIDITIES: Include tewix-cr-lolfbtk systolic heart failure, possible pneumonia, paroxysmal atrial fib, hypertension, diabetes, history of bilateral DVTs, depression, anxiety, gastroesophageal reflux disease, microcytic anemia, electrolyte abnormalities. PAST MEDICAL HISTORY: Significant for neuropathy, glaucoma, diabetes, thyroid problems, hypertension, edema, asthma, pneumonia, acid reflux, chronic back pain, depression and anxiety. PAST SURGICAL HISTORY: Includes shoulder surgery. She has had gastric bypass, gallbladder surgery, knee surgery, back surgery, hysterectomy, and cataracts. ALLERGIES: LATEX. CURRENT MEDICATIONS: Include Levaquin 750 mg every 48 hours. She is on metformin 1000 mg b.i.d. with meals, Cozaar 50 mg daily, Synthroid 75 mcg daily, Invokana 100 mg daily, Tylenol 650 every 4 hours p.r.n., lorazepam 1 mg every 6 hours p.r.n., Xalatan eye drops, Neurontin 400 mg b.i.d., Cymbalta 60 mg b.i.d., tramadol 50 mg every 4 hours p.r.n., Betapace 80 mg b.i.d., Zocor 40 mg at bedtime, Requip 0.5 mg at bedtime, Feldene 0.5 mg as needed and MiraLax 17 grams in 8 ounces of water daily. HISTORY AND PHYSICAL [id number] MIKI JACKSON HABITS: No alcohol or tobacco use. FAMILY HISTORY: Noncontributory. SOCIAL HISTORY: The patient wants to return back home and get back to her prior level of functioning. REVIEW OF SYSTEMS: GENERAL: She does complain of some weakness and fatigue. HEENT: Denies cold, cough, or congestion. CARDIOVASCULAR: Denies chest pain. PHYSICAL EXAMINATION: VITAL SIGNS: Stable, afebrile. GENERAL: A well-developed elderly female, in no acute distress upon exam. HEENT: Normocephalic and atraumatic. Mucosa moist. NECK: Supple. No lymphadenopathy. LUNGS: Clear at this time. HEART: Regular rate and rhythm at this time. ABDOMEN: Benign. EXTREMITIES: No clubbing, cyanosis or edema. NEUROLOGIC: Seems intact. LABORATORY DATA: Her white count is 8.8. Her H&H are 11 and 34 and platelet count is noted to be 431. Sodium 135, potassium is 3.7, BUN and creatinine of 37 and 2.0 and blood sugar is noted to be 136. ASSESSMENT: This is a 77-year-old female patient admitted to rehab with a working diagnosis of nontraumatic brain injury consistent with metabolic encephalopathy. The patient has potential to make improvement. We instituted the following multidisciplinary therapies, include but not limited to physical, occupational, respiratory, speech, nutritional services, prosthetics and orthotics. Given her complex medical condition and risks for more complications, rehabilitation services cannot be provided at a low level of care such as skilled nurse facility. PLAN: 1. Admit to [facility] for intensive inpatient therapy to include the following disciplines: A. Physical therapy to improve gait, all transfer skills and bed mobility to a modified independent level. B. Occupational therapy to a modified independent level. C. Case management to assist with discharge planning and placement options. D. Nutrition to assist with nutritional needs. E. Rehabilitation nursing to assist in monitoring the patient's underlying medical conditions and to assist with any type of bowel or bladder management. 2. The patient's current medication and medical care will be continued. 3. The patient will be placed on standard fall precautions. 4. The patient's estimated length of stay is approximately 7-10 days. 5. Discuss this patient during care team staff meeting this week. TRANSINT:[id number] Voice Confirmation ID: [id number] DOCUMENT ID: [id number] HISTORY AND PHYSICAL [id number] MIKI JACKSON notes whether there has been none or any medical/functional change since admission: - No change since preadmission screen. REJI attests patient continues to be appropriate for IRF: - Continues to be appropriate. PENG JOSÉ MD at 1404 CC: [id number] DICTATION DATE: 03/06/18 1252 MATERIAL WORKER: 03/06/18 1407 ADM IN [facility] [address] [place] [address]
[~2018-03-05 19:02] MED LIST changes: +LEVAQUIN750 MG PO; +SYNTHROID75 MCG PO
[2018-03-05 19:19] VITALS: BP 104/34; BMI 25.1
[2018-03-05 20:00] VITALS: BP 104/34
[2018-03-06 07:58] VITALS: BP 129/40
[2018-03-06 08:31] LABS: BASOPHILS 0.2 % (0-2); EOSINOPHILS 1.7 % (0-7); HEMATOCRIT 34.2 % (36.0-48.0); HEMOGLOBIN 10.6 g/dL (12-16); IMMATURE GRANULOCYTES 0.7 % (0-5); LYMPHOCYTES 30.9 % (15-50); MCH 28.3 pg (26.0-34.0); MCV 91.2 fL (80.0-100.0); MEAN PLATELET VOLUME 9.7 fL (7.4-10.4); MONOCYTES 9.1 % (2-11); NEUTROPHILS 57.4 % (40-80); RBC 3.75 10x6/uL (4.00-5.40); RDW 17.2 % (11.5-14.5); WBC 8.8 10x3/uL (4.8-10.8)
[2018-03-06 08:32] LABS: PLATELET COUNT 431 10x3/uL (130-400)
[2018-03-06 08:39] LABS: ANION GAP 12.7 mmol/L (8-16); CALCIUM 9.1 mg/dL (8.5-10.1); POTASSIUM - SERUM 3.7 mmol/L (3.5-5.1)
[2018-03-06 13:42] VITALS: Ht 157.5 cm; Wt 6257.8 kg
[2018-03-07 08:57] VITALS: BP 120/34
[2018-03-07 20:00] VITALS: BP 114/45
[2018-03-08 06:34] LABS: BASOPHILS 0.2 % (0-2); EOSINOPHILS 2.1 % (0-7); HEMATOCRIT 31.8 % (36.0-48.0); HEMOGLOBIN 9.7 g/dL (12-16); IMMATURE GRANULOCYTES 0.5 % (0-5); MCHC 30.5 g/dL (31.0-37.0); MCV 91.9 fL (80.0-100.0); MEAN PLATELET VOLUME 9.6 fL (7.4-10.4); MONOCYTES 7.5 % (2-11); NEUTROPHILS 58.7 % (40-80); PLATELET COUNT 391 10x3/uL (130-400); RBC 3.46 10x6/uL (4.00-5.40); RDW 17.6 % (11.5-14.5); WBC 8.3 10x3/uL (4.8-10.8)
[2018-03-08 06:48] LABS: ANION GAP 11.1 mmol/L (8-16); CARBON DIOXIDE 30.3 mmol/L (21.0-32.0); CREATININE - SERUM 1.5 mg/dL (0.6-1.3)
[2018-03-08 06:49] LABS: POTASSIUM - SERUM 4.4 mmol/L (3.5-5.1)
[2018-03-08 08:00] VITALS: BP 112/33
[2018-03-08 21:57] VITALS: BP 121/58
[2018-03-09 08:14] VITALS: BP 125/47
[2018-03-09 19:00] VITALS: BP 136/43
[2018-03-10 06:15] LABS: BASOPHILS 0.1 % (0-2); EOSINOPHILS 1.4 % (0-7); HEMATOCRIT 32.9 % (36.0-48.0); HEMOGLOBIN 10.1 g/dL (12-16); IMMATURE GRANULOCYTES 0.6 % (0-5); LYMPHOCYTES 24.6 % (15-50); MCH 28.3 pg (26.0-34.0); MCHC 30.7 g/dL (31.0-37.0); MCV 92.2 fL (80.0-100.0); MEAN PLATELET VOLUME 9.8 fL (7.4-10.4); NEUTROPHILS 65.3 % (40-80); PLATELET COUNT 377 10x3/uL (130-400); RBC 3.57 10x6/uL (4.00-5.40); RDW 17.6 % (11.5-14.5); WBC 8.5 10x3/uL (4.8-10.8)
[2018-03-10 06:40] LABS: ANION GAP 10.6 mmol/L (8-16); CALCIUM 9.3 mg/dL (8.5-10.1); CARBON DIOXIDE 29.9 mmol/L (21.0-32.0); CREATININE - SERUM 1.6 mg/dL (0.6-1.3); POTASSIUM - SERUM 4.5 mmol/L (3.5-5.1)
[2018-03-10 08:15] VITALS: BP 150/56
[2018-03-10 19:00] VITALS: BP 127/51
[2018-03-11 08:06] VITALS: BP 129/38
[2018-03-11 19:09] VITALS: BP 115/44
[2018-03-12 08:19] VITALS: BP 117/48
[2018-03-12 19:00] VITALS: BP 116/36
[2018-03-13 08:22] VITALS: BP 124/50
[2018-03-13 19:45] VITALS: BP 115/63
[2018-03-14 09:51] VITALS: BP 128/47
[2018-03-14 19:41] VITALS: BP 124/49
[2018-03-15 06:20] LABS: BASOPHILS 0.2 % (0-2); EOSINOPHILS 1.4 % (0-7); HEMATOCRIT 30.1 % (36.0-48.0); HEMOGLOBIN 9.4 g/dL (12-16); IMMATURE GRANULOCYTES 0.2 % (0-5); MCH 28.5 pg (26.0-34.0); MCHC 31.2 g/dL (31.0-37.0); MCV 91.2 fL (80.0-100.0); MEAN PLATELET VOLUME 9.9 fL (7.4-10.4); MONOCYTES 5.6 % (2-11); NEUTROPHILS 66.6 % (40-80); RDW 17.6 % (11.5-14.5); WBC 9.4 10x3/uL (4.8-10.8)
[2018-03-15 06:25] LABS: PLATELET COUNT 293 10x3/uL (130-400)
[2018-03-15 06:38] LABS: ANION GAP 12.7 mmol/L (8-16); CALCIUM 8.5 mg/dL (8.5-10.1); CARBON DIOXIDE 24.7 mmol/L (21.0-32.0); CREATININE - SERUM 1.2 mg/dL (0.6-1.3); POTASSIUM - SERUM 4.4 mmol/L (3.5-5.1)
[2018-03-15 07:50] VITALS: BP 116/55
[2018-03-16 00:13] VITALS: BP 128/50
[2018-03-16 07:50] VITALS: BP 121/54
== END 2018-03-16 10:29 | disposition home or self-care (01) | DRG 70 ==
LOC: D.REHAB 19:02
PROVIDERS: Emergency Medicine
DX: G93.41 Metabolic encephalopathy (principal); I50.23 Acute on chronic systolic (congestive) heart failure; N39.0 Urinary tract infection, site not specified; N17.9 Acute kidney failure, unspecified; E87.1 Hypo-osmolality and hyponatremia; I11.0 Hypertensive heart disease with heart failure; I48.0 Paroxysmal atrial fibrillation; D50.9 Iron deficiency anemia, unspecified; K21.9 Gastro-esophageal reflux disease without esophagitis; F41.8 Other specified anxiety disorders; R26.81 Unsteadiness on feet; E11.65 Type 2 diabetes mellitus with hyperglycemia; E83.42 Hypomagnesemia; E03.9 Hypothyroidism, unspecified; R74.8 Abnormal levels of other serum enzymes

== ENCOUNTER 2018-04-10 15:21 | Inpatient (IN) | payer MEDICARE, OTHER ==
[~2018-04-10] VITALS: Ht 157.5 cm; Wt 62.3 kg
--- NOTE | ~2018-04-10 | MORECARE ---
CASE MANAGEMENT DISCHARGE SUMMARY PATIENT: MIKI JACKSON UNIT: [id number] ADM DATE: 04/10/18 AGE: 77 : 39 SEX: F ROOM/BED: D.2210 AUTHOR: ANN DURANT PHYSICIAN: REFERRING PHYSICIAN: ANDREEA STONE MD DATE OF SERVICE: 04/14/18 Discharge Plan Patient Name: MIKI JACKSON Facility: [facility]:Early : 1940 Planned Disposition: Inpatient Rehab Anticipated Discharge Date: Discharge Date: Expected LOS: Initial Reviewer: [email or web address] Initial Review Date: 04/10/2018 Generated: 04/14/18 12:50 pm Comments DCP- Discharge Planning Updated by [email or web address]: Shelby Medina on 04/14/18 10:[address] Patient will be discharging to inpatient rehab today. IMM served and explained. I attempted to call both numbers for her and I did not get an answer. CM will continue to follow and assist with DC planning as needed DCP- Discharge Planning Updated by [email or web address]: Shelby Medina on 04/13/18 2:[address] Patient Name: MIKI JACKSON Admission Status: ER Accout number: [id number] Admission Date: 04-10-2018 : 1940 Admission Diagnosis:DISPLACED BIMALLEOLAR FRACTURE OF LEFT LOWER LEG, INIT Attending: ANDREEA STONE Current LOS: 3 Anticipated DC Date: Planned Disposition: Inpatient Rehab Primary Insurance: MEDICARE A & B Discharge Planning Comments: CM met with patient to assess discharge planning needs. Patient lives with her where she stated she was independent. She has a walker and a cane at home. There are not any steps or stairs in her home. She is using a walker and a cane. She stated that she would like to go to inpatient rehab when she is discharged. Cm will continue to follow and assist with DC planning Wildland Fire Fighter Specialist: Shelby Medina DCPIA - Discharge Planning Initial Assessment Updated by [email or web address]: Shelby Medina on 04/13/18 3:18 pm * Is the patient Alert and Oriented? Yes * How many steps to enter\exit or inside your home? * PCP Saumya * Pharmacy [address] * Preadmission Environment Home with Family * ADLs Independent * Equipment Cane Rolling Walker * List name and contact numbers for known caregivers / representatives who currently or will assist patient after discharge: Jose J () [phone] * Verbal permission to speak to the caregivers and representatives has been obtained from the patient. N/A * Community resources currently utilized None * Additional services required to return to the preadmission environment? Yes * Can the patient safely return to the preadmission environment? No * Has this patient been hospitalized within the prior 30 days at any hospital? Yes Coverage Notice Reviewer: [email or web address] Tomer Medina Notice Issued Date-Time: 04/14/2018 11:40 Notice Type: IM Discharge Notice Notice Delivered To: Patient Relationship to Patient: Diamond Wheel Molder Name: Delivery Method: HAND - Hand Delivered Fátima Days: Prior Verbal Notification: Recipient Understood Notice: Yes Recipient Signature: Yes Med Rec Note Co-signed by Attending: Coverage Notice Comment: Last DP export: 04/13/18 2:30 Patient Name: MIKI JACKSON Page [id number] at 1150 All edits/amendments must be made on the electronic document DICTATION DATE: 04/14/18 1150 SHOWER MAID: ADAN 04/14/18 1150 RPT#: [id number] DC DATE: STATUS: ADM IN [facility] [address] [place] [address] END OF REPORT
--- NOTE | ~2018-04-10 | MORECARE ---
CASE MANAGEMENT DISCHARGE SUMMARY PATIENT: MIKI JACKSON UNIT: [id number] ADM DATE: 04/10/18 AGE: 77 : 39 SEX: F ROOM/BED: D.2210 AUTHOR: ANN DURANT PHYSICIAN: REFERRING PHYSICIAN: ANDREEA STONE MD DATE OF SERVICE: 04/13/18 Discharge Plan Patient Name: MIKI JACKSON Facility: [facility]:[place] : 1940 Planned Disposition: Inpatient Rehab Anticipated Discharge Date: Discharge Date: Expected LOS: Initial Reviewer: [email or web address] Initial Review Date: 04/10/2018 Generated: 04/13/18 4:30 pm Comments DCP- Discharge Planning Updated by [email or web address]: Shelby Medina on 04/13/18 2:[address] Patient Name: MIKI JACKSON Admission Status: ER Accout number: [id number] Admission Date: 04-10-2018 : 1940 Admission Diagnosis:DISPLACED BIMALLEOLAR FRACTURE OF LEFT LOWER LEG, INIT Attending: ANDREEA STONE Current LOS: 3 Anticipated DC Date: Planned Disposition: Inpatient Rehab Primary Insurance: MEDICARE A & B Discharge Planning Comments: CM met with patient to assess discharge planning needs. Patient lives with her where she stated she was independent. She has a walker and a cane at home. There are not any steps or stairs in her home. She is using a walker and a cane. She stated that she would like to go to inpatient rehab when she is discharged. Cm will continue to follow and assist with DC planning Design Studio Consultant: Shelby Medina DCPIA - Discharge Planning Initial Assessment Updated by [email or web address]: Shelby Medina on 04/13/18 3:18 pm * Is the patient Alert and Oriented? Yes * How many steps to enter\exit or inside your home? * PCP Saumya * Pharmacy [address] * Preadmission Environment Home with Family * ADLs Independent * Equipment Cane Rolling Walker * List name and contact numbers for known caregivers / representatives who currently or will assist patient after discharge: Jose J () [phone] * Verbal permission to speak to the caregivers and representatives has been obtained from the patient. N/A * Community resources currently utilized None * Additional services required to return to the preadmission environment? Yes * Can the patient safely return to the preadmission environment? No * Has this patient been hospitalized within the prior 30 days at any hospital? Yes Last DP export: 04/13/18 2:21 Patient Name: MIKI JACKSON Page [id number] at 1530 All edits/amendments must be made on the electronic document DICTATION DATE: 04/13/18 152 PLAYGROUND EQUIPMENT ERECTOR: ADAN 04/13/18 152 RPT#: [id number] DC DATE: STATUS: ADM IN [facility] [address] [place] [address] END OF REPORT
--- NOTE | ~2018-04-10 | MORECARE ---
CASE MANAGEMENT DISCHARGE SUMMARY PATIENT: MIKI JACKSON UNIT: [id number] ADM DATE: 04/10/18 AGE: 77 : 39 SEX: F ROOM/BED: D.2210 AUTHOR: ANN DURANT PHYSICIAN: REFERRING PHYSICIAN: ANDREEA STONE MD DATE OF SERVICE: 04/13/18 Discharge Plan Patient Name: MIKI JACKSON Facility: [facility]:[place] : 1940 Planned Disposition: Inpatient Rehab Anticipated Discharge Date: Discharge Date: Expected LOS: Initial Reviewer: [email or web address] Initial Review Date: 04/10/2018 Generated: 04/13/18 4:21 pm DCPIA - Discharge Planning Initial Assessment Updated by [email or web address]: Shelby Medina on 04/13/18 3:18 pm * Is the patient Alert and Oriented? Yes * How many steps to enter\exit or inside your home? * PCP Saumya * Pharmacy [address] * Preadmission Environment Home with Family * ADLs Independent * Equipment Cane Rolling Walker * List name and contact numbers for known caregivers / representatives who currently or will assist patient after discharge: Jose J () [phone] * Verbal permission to speak to the caregivers and representatives has been obtained from the patient. N/A * Community resources currently utilized None * Additional services required to return to the preadmission environment? Yes * Can the patient safely return to the preadmission environment? No * Has this patient been hospitalized within the prior 30 days at any hospital? Yes Patient Name: MIKI JACKSON Page [id number] at 1521 All edits/amendments must be made on the electronic document DICTATION DATE: 04/13/18 1520 THREADING MACHINE OPERATOR: ADAN 04/13/18 1520 RPT#: [id number] DC DATE: STATUS: ADM IN [facility] [address] [place] [address] END OF REPORT
[2018-04-10 17:32] LABS: BASOPHILS 0.3 % (0-2); EOSINOPHILS 1.3 % (0-7); HEMATOCRIT 30.8 % (36.0-48.0); HEMOGLOBIN 9.6 g/dL (12-16); IMMATURE GRANULOCYTES 0.1 % (0-5); LYMPHOCYTES 24.5 % (15-50); MCHC 31.2 g/dL (31.0-37.0); MCV 93.1 fL (80.0-100.0); MEAN PLATELET VOLUME 11.3 fL (7.4-10.4); MONOCYTES 5.2 % (2-11); NEUTROPHILS 68.6 % (40-80); PLATELET COUNT 237 10x3/uL (130-400); RBC 3.31 10x6/uL (4.00-5.40); RDW 18.2 % (11.5-14.5); WBC 7.5 10x3/uL (4.8-10.8)
[2018-04-10 17:39] LABS: INR 1.11 (0.85-1.17); PROTIME 13.8 SECONDS (11.6-15.0)
[2018-04-10 17:42] LABS: ANION GAP 14.5 mmol/L (8-16); BILIRUBIN - TOTAL 0.31 mg/dL (0.2-1.3); CALCIUM 8.6 mg/dL (8.5-10.1); CARBON DIOXIDE 26.5 mmol/L (21.0-32.0); CREATININE - SERUM 1.3 mg/dL (0.6-1.3); PROTEIN - SERUM 6.3 g/dL (6.4-8.2)
[2018-04-10 20:00] VITALS: BP 169/53
[2018-04-10] MEDS ORDERED: TRAZODONE HCL150 MG PO (22:43)
[2018-04-10] MEDS ORDERED: ZANAFLEX2 M1 PO (22:45)
[2018-04-10] MEDS ORDERED: OMEPRAZOLE DR 20 MG (22:47)
[2018-04-11] VITALS (8 sets, daily range): BP systolic 103–179; BP diastolic 43–73; Ht 157.5 cm; Wt 62.3 kg
[2018-04-11 05:37] LABS: BASOPHILS 0.2 % (0-2); EOSINOPHILS 1.7 % (0-7); HEMATOCRIT 27.4 % (36.0-48.0); HEMOGLOBIN 8.4 g/dL (12-16); IMMATURE GRANULOCYTES 0.2 % (0-5); LYMPHOCYTES 30.7 % (15-50); MCH 28.7 pg (26.0-34.0); MCHC 30.7 g/dL (31.0-37.0); MCV 93.5 fL (80.0-100.0); MEAN PLATELET VOLUME 11.6 fL (7.4-10.4); MONOCYTES 7.3 % (2-11); NEUTROPHILS 59.9 % (40-80); PLATELET COUNT 219 10x3/uL (130-400); RBC 2.93 10x6/uL (4.00-5.40); WBC 8.2 10x3/uL (4.8-10.8)
[2018-04-11 05:43] LABS: ANION GAP 11.3 mmol/L (8-16); CALCIUM 8.2 mg/dL (8.5-10.1); CARBON DIOXIDE 26.5 mmol/L (21.0-32.0); CREATININE - SERUM 1.3 mg/dL (0.6-1.3); POTASSIUM - SERUM 3.8 mmol/L (3.5-5.1)
[2018-04-11 05:53] LABS: INR 1.13 (0.85-1.17)
[2018-04-12 04:00] VITALS: BP 147/53
[2018-04-12 05:17] LABS: BASOPHILS 0.4 % (0-2); EOSINOPHILS 1.2 % (0-7); HEMATOCRIT 28.1 % (36.0-48.0); HEMOGLOBIN 8.6 g/dL (12-16); IMMATURE GRANULOCYTES 0.1 % (0-5); LYMPHOCYTES 14.6 % (15-50); MCHC 30.6 g/dL (31.0-37.0); MCV 94.6 fL (80.0-100.0); MEAN PLATELET VOLUME 11.5 fL (7.4-10.4); MONOCYTES 9.6 % (2-11); NEUTROPHILS 74.1 % (40-80); PLATELET COUNT 227 10x3/uL (130-400); RBC 2.97 10x6/uL (4.00-5.40); RDW 18.5 % (11.5-14.5); WBC 8.5 10x3/uL (4.8-10.8)
[2018-04-12 05:22] LABS: ALBUMIN 2.8 g/dL (3.4-5.0); ANION GAP 15.3 mmol/L (8-16); BILIRUBIN - TOTAL 0.25 mg/dL (0.2-1.3); CARBON DIOXIDE 22.9 mmol/L (21.0-32.0); CREATININE - SERUM 1.2 mg/dL (0.6-1.3); POTASSIUM - SERUM 4.2 mmol/L (3.5-5.1); PROTEIN - SERUM 5.9 g/dL (6.4-8.2)
[2018-04-12 08:42] VITALS: BP 145/61
[2018-04-12 12:25] VITALS: BP 137/52
[2018-04-12 16:40] VITALS: BP 123/52
[2018-04-12 20:00] VITALS: BP 133/54
[2018-04-13] VITALS (12 sets, daily range): BP systolic 116–168; BP diastolic 47–87
[2018-04-13 06:09] LABS: BASOPHILS 0.1 % (0-2); EOSINOPHILS 2.2 % (0-7); HEMATOCRIT 23.4 % (36.0-48.0); IMMATURE GRANULOCYTES 0.1 % (0-5); LYMPHOCYTES 24.3 % (15-50); MCH 28.9 pg (26.0-34.0); MCHC 31.2 g/dL (31.0-37.0); MEAN PLATELET VOLUME 11.4 fL (7.4-10.4); MONOCYTES 11.2 % (2-11); NEUTROPHILS 62.1 % (40-80); PLATELET COUNT 188 10x3/uL (130-400); RBC 2.53 10x6/uL (4.00-5.40); RDW 18.6 % (11.5-14.5); WBC 6.8 10x3/uL (4.8-10.8)
[2018-04-13 06:29] LABS: ALBUMIN 2.3 g/dL (3.4-5.0); BILIRUBIN - TOTAL 0.22 mg/dL (0.2-1.3); CALCIUM 7.8 mg/dL (8.5-10.1); CARBON DIOXIDE 23.3 mmol/L (21.0-32.0); CREATININE - SERUM 1.5 mg/dL (0.6-1.3); PROTEIN - SERUM 5.5 g/dL (6.4-8.2)
[2018-04-13 06:30] LABS: ANION GAP 12.2 mmol/L (8-16); POTASSIUM - SERUM 3.5 mmol/L (3.5-5.1)
[2018-04-13 06:34] LABS: HEMOGLOBIN 7.3 g/dL (12-16); MCV 92.5 fL (80.0-100.0)
[2018-04-14] VITALS: BP 127/63
[2018-04-14 04:00] VITALS: BP 188/77
[2018-04-14 04:55] LABS: BASOPHILS 0.3 % (0-2); EOSINOPHILS 1.8 % (0-7); IMMATURE GRANULOCYTES 0.3 % (0-5); LYMPHOCYTES 31.4 % (15-50); MCH 29.2 pg (26.0-34.0); MCHC 32.4 g/dL (31.0-37.0); MEAN PLATELET VOLUME 11.4 fL (7.4-10.4); MONOCYTES 10.8 % (2-11); NEUTROPHILS 55.4 % (40-80); PLATELET COUNT 199 10x3/uL (130-400); RDW 18.5 % (11.5-14.5); WBC 7.3 10x3/uL (4.8-10.8)
[2018-04-14 04:59] LABS: HEMATOCRIT 29.3 % (36.0-48.0); HEMOGLOBIN 9.5 g/dL (12-16); MCV 90.2 fL (80.0-100.0); RBC 3.25 10x6/uL (4.00-5.40)
[2018-04-14 05:22] LABS: ALBUMIN 2.4 g/dL (3.4-5.0); ANION GAP 13.7 mmol/L (8-16); BILIRUBIN - TOTAL 0.52 mg/dL (0.2-1.3); CALCIUM 8.1 mg/dL (8.5-10.1); CARBON DIOXIDE 24.7 mmol/L (21.0-32.0); CREATININE - SERUM 1.3 mg/dL (0.6-1.3); POTASSIUM - SERUM 3.4 mmol/L (3.5-5.1)
[2018-04-14 08:34] VITALS: BP 174/76
[2018-04-14] MEDS ORDERED: HUMALOG 30100 UNITS/ SC (10:27)
[2018-04-14 12:00] VITALS: BP 128/74
[2018-04-14 12:46] VITALS: BP 176/73
== END 2018-04-14 17:30 | DRG 493 ==
LOC: D.ER 15:21 → D.MS 17:44 → D.EDHOLD 17:44 → D.MS 17:59
PROVIDERS: Family Medicine; Orthopaedic Surgery
PROC: 0QSH0ZZ Reposition Left Tibia, Open Approach (ICD-10-PCS; 2018-04-11)
PROC: 0QSK04Z Reposition Left Fibula with Internal Fixation Device, Open Approach (ICD-10-PCS; principal; 2018-04-11 10:18)
DX: S82.842A Displaced bimalleolar fracture of left lower leg, initial encounter for closed fracture (principal); I50.22 Chronic systolic (congestive) heart failure; S42.302A Unspecified fracture of shaft of humerus, left arm, initial encounter for closed fracture; W19.XXXA Unspecified fall, initial encounter; I11.0 Hypertensive heart disease with heart failure; E78.5 Hyperlipidemia, unspecified; E11.65 Type 2 diabetes mellitus with hyperglycemia; E11.40 Type 2 diabetes mellitus with diabetic neuropathy, unspecified; I48.91 Unspecified atrial fibrillation; F32.9 Major depressive disorder, single episode, unspecified

== ENCOUNTER 2018-04-14 18:37 | Inpatient (IN) | payer MEDICARE, OTHER ==
[~2018-04-14] VITALS: Ht 157.5 cm; Wt 62.1 kg
[~2018-04-14 18:37] MED LIST changes: +HUMALOG 30100 UNITS/ SC; +OMEPRAZOLE DR 20 MG; +TRAZODONE HCL150 MG PO; +ZANAFLEX2 M1 PO
[2018-04-14 19:00] VITALS: BP 196/83
[2018-04-14 22:39] VITALS: BMI 25.1
[2018-04-15 06:53] LABS: BASOPHILS 0.5 % (0-2); EOSINOPHILS 3.6 % (0-7); HEMOGLOBIN 8.7 g/dL (12-16); IMMATURE GRANULOCYTES 0.2 % (0-5); LYMPHOCYTES 38.1 % (15-50); MCH 28.8 pg (26.0-34.0); MCHC 32.2 g/dL (31.0-37.0); MCV 89.4 fL (80.0-100.0); MEAN PLATELET VOLUME 10.7 fL (7.4-10.4); MONOCYTES 8.4 % (2-11); NEUTROPHILS 49.2 % (40-80); PLATELET COUNT 206 10x3/uL (130-400); RBC 3.02 10x6/uL (4.00-5.40); RDW 18.2 % (11.5-14.5); WBC 5.6 10x3/uL (4.8-10.8)
[2018-04-15 07:00] LABS: ANION GAP 12.5 mmol/L (8-16); CALCIUM 8.5 mg/dL (8.5-10.1); CARBON DIOXIDE 25.6 mmol/L (21.0-32.0); CREATININE - SERUM 1.2 mg/dL (0.6-1.3)
[2018-04-15 07:02] LABS: POTASSIUM - SERUM 4.1 mmol/L (3.5-5.1)
[2018-04-15 08:00] VITALS: BP 129/63
[2018-04-15 12:10] VITALS: Ht 157.5 cm; Wt 62.1 kg
[2018-04-15 19:00] VITALS: BP 157/66
[2018-04-16 05:50] LABS: BASOPHILS 0.3 % (0-2); EOSINOPHILS 2.6 % (0-7); HEMATOCRIT 27.3 % (36.0-48.0); HEMOGLOBIN 8.8 g/dL (12-16); IMMATURE GRANULOCYTES 0.3 % (0-5); LYMPHOCYTES 28.1 % (15-50); MCH 29.2 pg (26.0-34.0); MCHC 32.2 g/dL (31.0-37.0); MCV 90.7 fL (80.0-100.0); MEAN PLATELET VOLUME 10.2 fL (7.4-10.4); MONOCYTES 8.7 % (2-11); PLATELET COUNT 233 10x3/uL (130-400); RBC 3.01 10x6/uL (4.00-5.40); RDW 17.8 % (11.5-14.5); WBC 5.8 10x3/uL (4.8-10.8)
[2018-04-16 06:16] LABS: CALCIUM 8.4 mg/dL (8.5-10.1); CARBON DIOXIDE 26.1 mmol/L (21.0-32.0); CREATININE - SERUM 1.2 mg/dL (0.6-1.3); POTASSIUM - SERUM 4.1 mmol/L (3.5-5.1)
[2018-04-16 08:00] VITALS: BP 140/51
[2018-04-16 19:00] VITALS: BP 160/63
[2018-04-17 08:00] VITALS: BP 154/54
[2018-04-17 20:00] VITALS: BP 177/64
[2018-04-18 11:28] VITALS: BP 162/54
[2018-04-19 00:14] VITALS: BP 157/55
[2018-04-19 06:55] LABS: BASOPHILS 0.5 % (0-2); EOSINOPHILS 2.8 % (0-7); HEMATOCRIT 27.9 % (36.0-48.0); HEMOGLOBIN 8.6 g/dL (12-16); IMMATURE GRANULOCYTES 0.3 % (0-5); LYMPHOCYTES 25.7 % (15-50); MCH 28.5 pg (26.0-34.0); MCHC 30.8 g/dL (31.0-37.0); MCV 92.4 fL (80.0-100.0); MEAN PLATELET VOLUME 10.3 fL (7.4-10.4); MONOCYTES 8.5 % (2-11); NEUTROPHILS 62.2 % (40-80); PLATELET COUNT 313 10x3/uL (130-400); RBC 3.02 10x6/uL (4.00-5.40); RDW 17.4 % (11.5-14.5)
[2018-04-19 07:01] LABS: ANION GAP 9.6 mmol/L (8-16); CALCIUM 8.5 mg/dL (8.5-10.1); CARBON DIOXIDE 31.4 mmol/L (21.0-32.0); CREATININE - SERUM 1.2 mg/dL (0.6-1.3)
[2018-04-19 08:00] VITALS: BP 154/57
[2018-04-19 19:02] VITALS: BP 171/71
[2018-04-20 07:55] VITALS: BP 159/52
[2018-04-20 21:00] VITALS: BP 93/63
[2018-04-21 06:11] LABS: BASOPHILS 0.3 % (0-2); EOSINOPHILS 3.6 % (0-7); HEMOGLOBIN 8.6 g/dL (12-16); IMMATURE GRANULOCYTES 0.2 % (0-5); LYMPHOCYTES 31.9 % (15-50); MCH 29.1 pg (26.0-34.0); MCHC 30.7 g/dL (31.0-37.0); MEAN PLATELET VOLUME 10.7 fL (7.4-10.4); MONOCYTES 8.2 % (2-11); NEUTROPHILS 55.8 % (40-80); PLATELET COUNT 334 10x3/uL (130-400); RBC 2.96 10x6/uL (4.00-5.40); RDW 17.3 % (11.5-14.5); WBC 5.8 10x3/uL (4.8-10.8)
[2018-04-21 06:20] LABS: MCV 94.6 fL (80.0-100.0)
[2018-04-21 06:33] LABS: ANION GAP 11.5 mmol/L (8-16); CALCIUM 8.3 mg/dL (8.5-10.1); CARBON DIOXIDE 30.7 mmol/L (21.0-32.0); POTASSIUM - SERUM 4.2 mmol/L (3.5-5.1)
[2018-04-21 06:38] LABS: CREATININE - SERUM 1.6 mg/dL (0.6-1.3)
[2018-04-21 08:00] VITALS: BP 141/55
[2018-04-21 20:00] VITALS: BP 162/58
[2018-04-22 08:00] VITALS: BP 187/76
--- NOTE | 2018-04-22 15:04 | RHP ---
PATIENT: MIKI JACKSON MEDICAL RECORD: [id number] ACCOUNT: [id number] LOCATION:[facility]1117 : [birth year] ADMISSION DATE: 04/14/18 REHABILITATION HISTORY AND PHYSICAL EXAMINATION POST ADMISSION PHYSICIAN EXAMINATION ADMITTING DIAGNOSIS: Debility secondary to a left trimalleolar fracture. HISTORY OF PRESENT ILLNESS: The patient is a 77-year-old female admitted secondary to debility from a fall and a trimalleolar fracture. She presented to the Emergency Room, had deformity noted and abrasion on her left ankle and hands. She has history of neuropathy, diabetes, hypothyroidism, hypertension, chronic edema, and asthma. She has a history of 2 different incidents of pulmonary embolism, acid reflux, atrial fib, hyperlipidemia, history of bypass surgery, chronic back pain, depression, and anxiety. She has also had history of hysterectomy, shoulder surgery, gastric bypass, cholecystectomy, total knee arthroplasty, and cataract surgery. X-rays revealed a trimalleolar fracture showing an ORIF of her hip on April 11. 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 She is requiring supplemental O2. She has had postop anemia. She is having increased pain. She is nonweightbearing to her left lower extremity and left upper extremity at this time and impaired mobility. She lives at home with her , was independent with ADLs and mobility prior to this. She was recently in acute inpatient rehab and had a good outcome. She was independent with her ADLs and her mobility. She is currently set up for max assist for ADLs and mod to max assist for mobility. She and her would like for her to return home to get back to her prior level of functioning or better if possible after acute inpatient rehab stay. She is also going to need to return at some point to get a surgery done on her shoulder. COMORBIDITIES: In this patient, include trimalleolar fracture, acute closed fracture of the left proximal humerus, nonunion of the left humerus, diabetes, hypertension, CHF, renal insufficiency, hyperlipidemia, depression, anxiety, restless legs, hypothyroidism, and paroxysmal atrial fib. PAST MEDICAL HISTORY: Significant for neuropathy, glaucoma, diabetes, thyroid problems, hypertension, edema, asthma, pneumonia, reflux, chronic back pain, hysterectomy, depression, and anxiety. PAST SURGICAL HISTORY: Includes gallbladder surgery; knee surgery; back surgery; cataracts; foot, arm, and extremity surgery; hysterectomy; gastric bypass; and left shoulder surgery. ALLERGIES: LATEX. CURRENT MEDICATIONS: Include Cozaar 50 mg daily, Synthroid 75 mcg daily, Neurontin 400 mg b.i.d. with meals, and Protonix 40 mg daily. She is on instant glucose protocol for low blood sugar, Cymbalta 60 mg b.i.d., Ativan 1 mg q. 6 hours p.r.n., and Xalatan eyedrops. She is on a low-resistant sliding scale with Humalog, Requip 0.5 mg at bedtime, Desyrel 100 mg at bedtime, Ultram 50 mg q. 4 hours p.r.n., Zanaflex 2 mg b.i.d. p.r.n., sotalol 80 mg b.i.d., and Zocor 40 mg at bedtime. HABITS: No current alcohol or tobacco use. HISTORY AND PHYSICAL [id number] MKII JACKSON FAMILY HISTORY: Noncontributory. SOCIAL HISTORY: The patient hopes to return back home with her and get back to her prior level of functioning. REVIEW OF SYSTEMS: GENERAL: She does complain of weakness and fatigue. HEENT: Denies cold, cough, or congestion. CARDIOVASCULAR: Denies chest pain. PHYSICAL EXAMINATION: VITAL SIGNS: Stable and afebrile. GENERAL: A 5-foot 2-inch and 137-pound female, who is alert and oriented on exam. HEENT: Normocephalic and atraumatic. Mucosa moist. NECK: Supple. No lymphadenopathy. LUNGS: Clear at this time. No wheeze, rhonchi, or rales. HEART: Regular rate and rhythm. No murmurs, rubs, or gallops. ABDOMEN: Benign. EXTREMITIES: She does have postop area to her ankle and she does have a sling to her upper extremity. LABORATORY DATA: Admit white count is 5.6, H&H 8.7 and 27.0, and platelet count was noted to be 206. Sodium is 143, potassium 4.1, BUN and creatinine of 18 and 1.2, and blood sugar is to be 98. ASSESSMENT: This is a 77-year-old female patient admitted to the rehab with working diagnosis of debility secondary to trimalleolar fracture and also left upper extremity fracture. The patient has potential to make improvement. We will institute the following multidisciplinary therapies including, but not limited to physical, occupational, respiratory, speech, nutritional services, prosthetics, and orthotics. Given her complex medical condition and risk for more complications, rehabilitation services cannot be provided at a low level of care such as halfway facility. PLAN: 1. Admit to [facility] for intensive inpatient therapy to include the following disciplines: A. Physical therapy to improve gait, all transfer skills, and bed mobility to modified independent level. B. Occupational therapy to improve activities of daily living to a modified independent level. C. Case management to assist with discharge planning and placement options. D. Nutrition to assist with nutritional needs. E. Rehabilitation nursing to assist in monitoring the patient's underlying medical conditions and to assist with any type of bowel or bladder management. 2. The patient's current medications and medical care will be continued. 3. The patient will be placed on standard fall precautions. 4. The patient's estimated length of stay is approximately 7-10 days. 5. We will discuss this patient during care team staff meeting this week. We will hopefully get her back to the level of functioning that she can actually go in and have her shoulder fixed. TRANSINT:[id number] Voice Confirmation ID: [id number] DOCUMENT ID: [id number] HISTORY AND PHYSICAL [id number] MIKI JACKSON notes whether there has been none or any medical/functional change since admission: - No change since prescreen. REJI attests patient continues to be appropriate for IRF: - Continues to be appropriate. PENG JOSÉ MD at 1504 CC: [id number] DICTATION DATE: 04/15/18 1302 SCIENTIFIC AIDE: 04/15/18 1403 ADM IN [facility] [address] [place] [address]
[2018-04-23 06:33] LABS: BASOPHILS 0.4 % (0-2); EOSINOPHILS 3.2 % (0-7); HEMATOCRIT 28.7 % (36.0-48.0); HEMOGLOBIN 8.9 g/dL (12-16); IMMATURE GRANULOCYTES 0.3 % (0-5); LYMPHOCYTES 26.9 % (15-50); MCH 29.3 pg (26.0-34.0); MCV 94.4 fL (80.0-100.0); MEAN PLATELET VOLUME 10.6 fL (7.4-10.4); MONOCYTES 7.5 % (2-11); NEUTROPHILS 61.7 % (40-80); PLATELET COUNT 359 10x3/uL (130-400); RBC 3.04 10x6/uL (4.00-5.40); RDW 17.6 % (11.5-14.5); WBC 6.9 10x3/uL (4.8-10.8)
[2018-04-23 06:39] LABS: ANION GAP 12.9 mmol/L (8-16); CALCIUM 8.8 mg/dL (8.5-10.1); CARBON DIOXIDE 29.8 mmol/L (21.0-32.0); CREATININE - SERUM 1.5 mg/dL (0.6-1.3); POTASSIUM - SERUM 4.7 mmol/L (3.5-5.1)
[2018-04-23 08:00] VITALS: BP 167/74
[2018-04-24 08:01] VITALS: BP 139/56
[2018-04-24 19:36] VITALS: BP 115/58
[2018-04-25 09:09] VITALS: BP 170/64
[2018-04-25 23:08] VITALS: BP 168/69
[2018-04-26 06:06] LABS: BASOPHILS 0.7 % (0-2); EOSINOPHILS 2.2 % (0-7); HEMATOCRIT 29.6 % (36.0-48.0); IMMATURE GRANULOCYTES 0.3 % (0-5); LYMPHOCYTES 18.2 % (15-50); MCH 28.8 pg (26.0-34.0); MCHC 30.4 g/dL (31.0-37.0); MCV 94.6 fL (80.0-100.0); MEAN PLATELET VOLUME 10.7 fL (7.4-10.4); MONOCYTES 6.5 % (2-11); NEUTROPHILS 72.1 % (40-80); PLATELET COUNT 391 10x3/uL (130-400); RBC 3.13 10x6/uL (4.00-5.40); RDW 16.8 % (11.5-14.5); WBC 7.6 10x3/uL (4.8-10.8)
[2018-04-26 06:15] LABS: ANION GAP 12.4 mmol/L (8-16); CALCIUM 8.9 mg/dL (8.5-10.1); CARBON DIOXIDE 31.6 mmol/L (21.0-32.0); CREATININE - SERUM 1.3 mg/dL (0.6-1.3)
[2018-04-26 08:22] VITALS: BP 142/52
[2018-04-27 07:07] LABS: BASOPHILS 0.6 % (0-2); EOSINOPHILS 3.5 % (0-7); HEMATOCRIT 28.7 % (36.0-48.0); HEMOGLOBIN 8.9 g/dL (12-16); IMMATURE GRANULOCYTES 0.3 % (0-5); LYMPHOCYTES 25.1 % (15-50); MCH 29.2 pg (26.0-34.0); MCV 94.1 fL (80.0-100.0); MEAN PLATELET VOLUME 10.6 fL (7.4-10.4); NEUTROPHILS 63.5 % (40-80); PLATELET COUNT 377 10x3/uL (130-400); RBC 3.05 10x6/uL (4.00-5.40); RDW 16.8 % (11.5-14.5); WBC 6.9 10x3/uL (4.8-10.8)
[2018-04-27 07:22] LABS: ANION GAP 11.6 mmol/L (8-16); CALCIUM 8.9 mg/dL (8.5-10.1); CARBON DIOXIDE 30.6 mmol/L (21.0-32.0); POTASSIUM - SERUM 4.2 mmol/L (3.5-5.1)
[2018-04-27 07:28] LABS: CREATININE - SERUM 1.8 mg/dL (0.6-1.3)
[2018-04-27 08:00] VITALS: BP 135/58
[2018-04-27 19:00] VITALS: BP 153/58
[2018-04-28 08:00] VITALS: BP 135/55
[2018-04-28 19:50] VITALS: BP 126/59
[2018-04-29 07:31] VITALS: BP 133/50
== END 2018-04-29 13:30 | disposition home health service (06) | DRG 561 ==
LOC: D.REHAB 18:37
PROVIDERS: ADMIT Emergency Medicine
DX: S82.852D Displaced trimalleolar fracture of left lower leg, subsequent encounter for closed fracture with routine healing (principal); R53.81 Other malaise; S42.202D Unspecified fracture of upper end of left humerus, subsequent encounter for fracture with routine healing; E11.9 Type 2 diabetes mellitus without complications; I10 Essential (primary) hypertension; I50.9 Heart failure, unspecified; E78.5 Hyperlipidemia, unspecified; F41.8 Other specified anxiety disorders; G25.81 Restless legs syndrome; E03.9 Hypothyroidism, unspecified; I48.0 Paroxysmal atrial fibrillation; N28.9 Disorder of kidney and ureter, unspecified; K21.9 Gastro-esophageal reflux disease without esophagitis

== ENCOUNTER 2018-05-31 09:20 | Day surgery (SDC) | payer MEDICARE, OTHER ==
[2018-05-27 11:00] LABS: ANION GAP 14.6 mmol/L (8-16); CARBON DIOXIDE 30.2 mmol/L (21.0-32.0); CREATININE - SERUM 1.3 mg/dL (0.6-1.3); POTASSIUM - SERUM 4.8 mmol/L (3.5-5.1)
[2018-05-27 11:49] LABS: HEMATOCRIT 35.8 % (36.0-48.0); HEMOGLOBIN 11.3 g/dL (12-16); MCH 29.7 pg (26.0-34.0); MCHC 31.6 g/dL (31.0-37.0); MCV 94.2 fL (80.0-100.0); MEAN PLATELET VOLUME 11.4 fL (7.4-10.4); RBC 3.8 10x6/uL (4.00-5.40); WBC 8.5 10x3/uL (4.8-10.8)
[~2018-05-31] VITALS: Ht 157.5 cm; Wt 61.2 kg
[2018-05-31 11:50] VITALS: BP 161/62; Ht 157.5 cm; Wt 61.2 kg
[2018-05-31] MEDS ORDERED: HYDROCODON-ACE1 EA10 PO (15:04)
--- NOTE | 2018-06-14 09:18 | OP ---
PATIENT NAME: MIKI JACKSON MEDICAL RECORD: [id number] :38 LOCATION:[facility] ADMISSION DATE: SURGEON: CAITIE CID MD DATE OF OPERATION: 05/31/2018 PREOPERATIVE DIAGNOSIS: Failure of fixation of left medial malleolar fracture status post ORIF, left ankle. POSTOPERATIVE DIAGNOSIS: Failure of fixation of left medial malleolar fracture status post ORIF, left ankle. PROCEDURES: Revision ORIF of the left ankle -- medial malleolus. SURGEON: Caitie Cid MD ANESTHESIA: Nobody. INTRAOPERATIVE COMPLICATIONS: None. SUMMARY OF PATHOLOGIC FINDINGS: Upon removal of the screw, it was apparent that the medial malleolar fragment had fallen into misalignment. Secondary to the patient's profound osteoporosis, it quite simply broke through and pulled medially. Several attempts to trying to pin this were unsuccessful and I did not feel like the bone would hold up to further screw fixation as it had failed screw fixation Once. Ultimately, it was fixed with FiberWire anchored by a transtibial cancellous screw resulting in excellent anatomic tenriism of the mortise as seen on all views intraoperatively. OPERATIVE SUMMARY IN DETAIL: After obtaining the appropriate preoperative orthopedic surgery consent as well as anesthetic consultation, evaluation, and clearance, the patient was brought to the operating room and placed on the operating table in supine position. After general laryngeal mask airway was administered, tourniquet was placed about the proximal aspect of the left lower extremity. The left lower extremity was then prepped and draped in routine sterile fashion. The leg was elevated and exsanguinated. Tourniquet inflated to 350 mmHg. The medial malleolar approach was done directly midline over the level of the medial malleolar failure of fixation. The previously placed screw was gently removed. Multiple attempts at holding the medial malleolar fragment in the anatomic position while putting a K-wire through were tenuous at best. At this point, the decision was made to anchor a mcbbat-mq-hyrys FiberWire on to a transtibial cancellous screw. FiberWire was then placed under the deltoid ligament and pulled into position of reduction as seen on fluoroscopy. The eccwdn-kv-wmagh was then looped over the protruding head of the transtibial screw and pulled into the appropriate tension as to hold the medial malleolar fragment exactly in an anatomic positioning. Having completed this, after the grcswn-dr-exjby FiberWire was tied, the transtibial head was gently seated against the bone as to avoid any skin protrusion. Final radiographs were taken and submitted for radiologist review. Sterile dressings were applied. Posterior L&U splint was applied. The patient was awakened and taken to the recovery room in stable condition. All final needle and sponge counts were correct. TRANSINT:[id number] Voice Confirmation ID: [id number] DOCUMENT ID: [id number] OPERATIVE REPORT [id number] MIKI JACKSON MD, CAITIE TOLLIVER at 0918 CC: [id number] DICTATION DATE: 06/11/18 0938 MANAGER SECURITY AND SAFETY: 06/11/18 1109 [facility] 05/31/[address] [address]
== END 2018-05-31 16:05 | disposition home or self-care (01) ==
LOC: D.OPS 09:20 → D.PAN 09:25 → D.OPS 12:30
PROVIDERS: Anesthesiology
DX: S82.52XA Displaced fracture of medial malleolus of left tibia, initial encounter for closed fracture (principal); X58.XXXA Exposure to other specified factors, initial encounter

== ENCOUNTER 2018-06-16 13:24 | Inpatient (IN) | payer MEDICARE, OTHER ==
[~2018-06-16] VITALS: Ht 157.5 cm; Wt 59.9 kg
[~2018-06-16 13:24] MED LIST changes: +HYDROCODON-ACE1 EA10 PO
[2018-06-24] MEDS ORDERED: RESTORIL15 MG PO (10:48)
[2018-06-24 11:28] LABS: BASOPHILS 0.5 % (0-2); EOSINOPHILS 2.7 % (0-7); HEMATOCRIT 33.7 % (36.0-48.0); HEMOGLOBIN 10.6 g/dL (12-16); IMMATURE GRANULOCYTES 0.2 % (0-5); LYMPHOCYTES 35.6 % (15-50); MCH 29.9 pg (26.0-34.0); MCHC 31.5 g/dL (31.0-37.0); MCV 94.9 fL (80.0-100.0); MEAN PLATELET VOLUME 10.6 fL (7.4-10.4); MONOCYTES 6.1 % (2-11); NEUTROPHILS 54.9 % (40-80); PLATELET COUNT 314 10x3/uL (130-400); RBC 3.55 10x6/uL (4.00-5.40); RDW 15.1 % (11.5-14.5); WBC 8.2 10x3/uL (4.8-10.8)
[2018-06-24 11:33] LABS: ANION GAP 15.3 mmol/L (8-16); CALCIUM 9.6 mg/dL (8.5-10.1); CARBON DIOXIDE 29.1 mmol/L (21.0-32.0); CREATININE - SERUM 1.7 mg/dL (0.6-1.3); POTASSIUM - SERUM 5.4 mmol/L (3.5-5.1)
[2018-06-24 11:35] LABS: APTT 26.9 SECONDS (22.8-39.4); INR 1.02 (0.85-1.17); PROTIME 12.9 SECONDS (11.6-15.0)
[2018-06-24 11:42] LABS: APPEARANCE HAZY (CLEAR); BILIRUBIN NEGATIVE (NEGATIVE); COLOR YELLOW (YELLOW); GLUCOSE NEGATIVE (NEGATIVE); KETONE NEGATIVE (NEGATIVE); NITRITE NEGATIVE (NEGATIVE); PROTEIN NEGATIVE (NEGATIVE); SPECIFIC GRAVITY 1.005 (1.005-1.020); UROBILINOGEN NORMAL (NORMAL)
[2018-06-24 11:48] LABS: BACTERIA MODERATE /hpf (NONE SEEN); RED CELLS - URINE RARE /hpf (0-5)
[2018-06-25] VITALS (13 sets, daily range): BP systolic 76–162; BP diastolic 23–58; BMI 24.7
--- NOTE | 2018-06-25 08:37 | NUR ---
PLASMA BLADE SET TO 6/8 BOVIE PAD RIGHT THIGH [id number] EXP 10/16/2019
--- NOTE | 2018-06-25 22:15 | NUR ---
PT'S BLOOD PRESSURE AND MAP HAS BEEN DECREASING SINCE 1700 TODAY. MANUAL BP CONFIRMED 84/24. CALLED DR. CID. GAVE 500 ML BOLUS, ORDERED 2 UNITS PRBC [address] BANKS FOR MEDICAL MANAGEMENT. ORDERED HCT TO BE DRAWN BEFORE BLOOD IS TRANSFUSED AND HCT DRAWN AGAIN AFTER 1ST UNIT AND REPORT.
[2018-06-25 23:02] LABS: HEMATOCRIT 21.6 % (36.0-48.0); HEMOGLOBIN 6.7 g/dL (12-16)
[2018-06-26] VITALS (8 sets, daily range): BP systolic 87–159; BP diastolic 32–58; Ht 157.5 cm; Wt 59.9 kg
[2018-06-26 03:12] LABS: HEMATOCRIT 29.3 % (36.0-48.0); HEMOGLOBIN 9.2 g/dL (12-16)
--- NOTE | 2018-06-26 03:15 | NUR ---
TRANSFUSED 1 UNIT PRBC. H&H BEFORE TRANSFUSION 6.7 AND 21.6 - H&H AFTER 1ST UNIT 9.2 AND 29.3; BP 136/49, MAP 65. CALLED RESULTS AND VITALS TO DR. BANKS - STATUS IMPROVED, HOLD 2ND UNIT, DO NOT TRANSFUSE AT THIS TIME. INFORMED RANGEL IN LAB WE WILL NOT BE NEEDING 2ND UNIT PRBC FOR NOW.
[2018-06-26 05:57] LABS: BASOPHILS 0.1 % (0-2); EOSINOPHILS 3.8 % (0-7); HEMATOCRIT 30.4 % (36.0-48.0); HEMOGLOBIN 9.5 g/dL (12-16); IMMATURE GRANULOCYTES 0.3 % (0-5); LYMPHOCYTES 10.5 % (15-50); MCH 29.1 pg (26.0-34.0); MCHC 31.3 g/dL (31.0-37.0); MEAN PLATELET VOLUME 10.8 fL (7.4-10.4); MONOCYTES 6.1 % (2-11); NEUTROPHILS 79.2 % (40-80); RBC 3.27 10x6/uL (4.00-5.40); RDW 16.2 % (11.5-14.5); WBC 7.9 10x3/uL (4.8-10.8)
[2018-06-26 06:00] LABS: PLATELET COUNT 235 10x3/uL (130-400)
--- NOTE | 2018-06-26 06:00 | NUR ---
PT HAS BECOME INCREASINGLY CONFUSED NIGHT WORE ON. SHE HAS TAKEN IMMOBILIZER OFF TWICE IN LAST HOUR. PLACED KHOA ALARM ON BED AND PUT UP 3 RAILS. TURNED OFF FIRER PORTABLE BOILER FOR NOW. WILL CONTINUE TO MONITOR.
[2018-06-26 06:26] LABS: ANION GAP 14.8 mmol/L (8-16); CALCIUM 7.5 mg/dL (8.5-10.1); CARBON DIOXIDE 23.2 mmol/L (21.0-32.0); CREATININE - SERUM 1.7 mg/dL (0.6-1.3)
--- NOTE | 2018-06-26 08:19 | NUR ---
PT AND KHOA PAD REPOSITIONED IN BED. ATTEMPTING TO REORIENTAT UNSUCCESSFUL. IVF INFUSING AT PRESCRIBED RATE WITH SCD INTACT. SLING REPOSTIONED WITH EDEMA AND REDNESS NOTED TO AXILLARY AREA TO ARM. CAP REFILL <3SEC. DENIES ANY PAIN OR DISCOMFORT AT THIS TIME WITH DRESSING INTACT. ENCOURAGED TO USE CALL LIGHT FOR ASSSIT.
--- NOTE | 2018-06-26 11:26 | NUR ---
PT CONTINUED AGITATION AND VOIDED INCONT. IN BED WITH PERICARE DONE WITH LINEN CHANGED. REFUSED TO TAKE PO VALIUM. CALLED AND NOTIFED OF CONFUSION AND AGITATION AND APPRECIATIVE OF CALL.
--- NOTE | 2018-06-26 11:48 | NUR ---
PT CONFUSED AND ATTEMPTING TO GET OUT OF BED STATED IS LEAVING GETTING OUT OF HERE. VERY AGITIATED AND UNABLE TO REDIRECT. DENIES ANY PAIN AT THIS TIME. NEW ORDER FOR KHOA BED WITH NOTIFIED AND APPRECIATIVE OF CALL.
--- NOTE | 2018-06-26 14:00 | NUR ---
RESTING WITH EYES CLOSED RESPIRATIONS EVEN AND UNLABORED. TOLERATING KHOA BED WITH SLING INTACT TO LT. SHOULDER. WITH GOOD CAP REFILL. REFUSED LUNCH. WILL CONT. TO MONITOR.
--- NOTE | 2018-06-26 22:26 | NUR ---
PT AWAKE AND CALLING OUT FOR HELP. CONFUSED TO SITUATION. ATTEMPTED TO REORIENT. GAVE SCHEDULED MEDS. GAVE TYLENOL FOR SHOULDER PAIN. FSBS 81 - OFFERED PT SNACK. PT SITTING UP IN BED EATING SALTINE CRACKERS AND DIET COKE. NO OTHER NEEDS. ASSESSMENT COMPLETE PER FLOW-SHEET. WILL CONTINUE TO MONITOR.
[2018-06-27] VITALS (10 sets, daily range): BP systolic 112–143; BP diastolic 28–68
[2018-06-27 06:33] LABS: BASOPHILS 0.2 % (0-2); EOSINOPHILS 4.3 % (0-7); HEMATOCRIT 25.7 % (36.0-48.0); HEMOGLOBIN 8.2 g/dL (12-16); IMMATURE GRANULOCYTES 0.1 % (0-5); LYMPHOCYTES 19.9 % (15-50); MCH 29.3 pg (26.0-34.0); MCHC 31.9 g/dL (31.0-37.0); MCV 91.8 fL (80.0-100.0); MEAN PLATELET VOLUME 10.6 fL (7.4-10.4); MONOCYTES 11.2 % (2-11); NEUTROPHILS 64.3 % (40-80); PLATELET COUNT 209 10x3/uL (130-400); RDW 16.1 % (11.5-14.5); WBC 8.6 10x3/uL (4.8-10.8)
[2018-06-27 06:48] LABS: ANION GAP 13.6 mmol/L (8-16); CALCIUM 7.8 mg/dL (8.5-10.1); CREATININE - SERUM 1.6 mg/dL (0.6-1.3); POTASSIUM - SERUM 4.6 mmol/L (3.5-5.1)
--- NOTE | 2018-06-27 11:05 | NUR ---
ALERT AND ORIENTEDX3 AND APOLIGETIC FOR CONFUSION. TEMESHA COMPLAINT COORDINATOR NOTIFIED OF PATIENT CONDITION CHANGE REGARDING RESTRAINTS. SLING INTACT TO LT. SHOULDER WITH EDEMA NOTED TO SHOULDER WITH ULTRAM GIVEN FOR DISCOMFORT AND EFFECTIVE. ENCOURAGED TO USE CALL LIGHT FOR ASSIST. VERBALIZED UNDERSTANDING
--- NOTE | 2018-06-27 17:28 | MORECARE ---
CASE MANAGEMENT DISCHARGE SUMMARY PATIENT: MIKI JACKSON UNIT: [id number] ADM DATE: 06/25/18 AGE: 78 : 39 SEX: F ROOM/BED: D.2210 AUTHOR: ANN DURANT PHYSICIAN: REFERRING PHYSICIAN: CAITIE CID MD DATE OF SERVICE: 06/27/18 Discharge Plan Patient Name: MIKI JACKSON Facility: [facility]:[place] : 1940 Planned Disposition: Home with Home Health Anticipated Discharge Date: Discharge Date: Expected LOS: Initial Reviewer: [id number] Initial Review Date: 06/25/2018 Generated: 06/27/18 6:28 pm Comments DCP- Discharge Planning Updated by [email or web address]: Adriana Mcgill on 06/26/18 4:[address] CONSULT RECEIVED FOR DISCHARGE PLANNING. PATIENT VERY CONFUSED AND AGITATED. THE NURSE HAS SPOKEN WITH THE VIA PHONE. CM WILL F/U WITH THE PATIENT IS TOO CONFUSED TO PARTICIPATE. AT THIS TIME. Patient Name: MIKI JACKSON Page [phone] at 1728 All edits/amendments must be made on the electronic document DICTATION DATE: 06/27/181727 LOTUS NOTES DEVELOPER: ADAN 06/27/181727 RPT#: [id number] DC DATE: STATUS: ADM IN [facility] [address] [place] [address] END OF REPORT
--- NOTE | 2018-06-27 17:42 | MORECARE ---
CASE MANAGEMENT DISCHARGE SUMMARY PATIENT: MIKI JACKSON UNIT: [id number] ADM DATE: 06/25/18 AGE: 78 : 39 SEX: F ROOM/BED: D.2210 AUTHOR: ANN DURANT PHYSICIAN: REFERRING PHYSICIAN: CAITIE CID MD DATE OF SERVICE: 06/27/18 Discharge Plan Patient Name: MIKI JACKSON Facility: [facility]:[place] : 1940 Planned Disposition: Home with Home Health Anticipated Discharge Date: Discharge Date: Expected LOS: Initial Reviewer: [email or web address] Initial Review Date: 06/25/2018 Generated: 06/27/18 6:41 pm Comments DCP- Discharge Planning Updated by [email or web address]: Adriana Mcgill on 06/27/18 4:[address] PATIENT'S MENTAL STATUS HAS IMPROVED TODAY. SHE WAS VERY CONFUSED 06/26/18. CM COULD NOT INTERVIEW FOR DCP AT THAT TIME. CM CALLED TO SPEAK WITH HER HE WAS AT THE BEDSIDE BUT CM WAS ON ANOTHER UNIT. PATIENT HAS IMPROVED DRAMATICALLY THIS PM. CM EXPLAINED MD HAD ORDERED A CONSULT AND EXPLAINED CM ROLE. SHE STATED SHE COULD GIVE SOME INFORMATION. HER VISITED TODAY BUT LEFT EARLY DUE TO WEATHER. THE PATIENT KNOWS WHERE SHE IS AND WHAT HAS HAPPEN. SHE STATES SHE PLANS TO DISCHARGE TO HOME W/ HER PRESENT H/H PROVIDER, [facility]. DR LAMB IS HER PCP. DR CID IS HER ORTHOPEDIC MD. SHE STATES SHE JUST SAW DR LANGE THIS PM. PHARMACY - [facility] DME - HAS WALKER AND CANE. WILL NEED TO VERIFY DME WITH THE . PATIENT DOES GIVE CM PERMISSION TO SPEAK WITH HER . WOULD BE APPROPRIATE TO MEET WITH PATIENT AND HER SPOUSE TO PLAN FOR CONTINUED CARE. CM TO FOLLOW. WILL VISIT TOMORROW AFTERNOON. DCP- Discharge Planning Updated by [email or web address]: Adriana Mcgill on 06/26/18 4:[address] CONSULT RECEIVED FOR DISCHARGE PLANNING. PATIENT VERY CONFUSED AND AGITATED. THE NURSE HAS SPOKEN WITH THE VIA PHONE. CM WILL F/U WITH THE PATIENT IS TOO CONFUSED TO PARTICIPATE. AT THIS TIME. Last DP export: 06/27/18 4:28 pm Patient Name: MIKI JACKSON Page [phone] at 1742 All edits/amendments must be made on the electronic document DICTATION DATE: 06/27/181740 DRAWER IN JACQUARD LOOM: ADAN 06/27/181740 RPT#: [id number] DC DATE: STATUS: ADM IN [facility] [address] [place] [address] END OF REPORT
--- NOTE | 2018-06-27 18:25 | NUR ---
STARTED 1ST UNIT OF PRBC'S WITH NO S/S OF REACTION AT THIS TIME.ALERT AND ORIENTED WITH CALL LIGHT IN PLACE
[2018-06-28] VITALS (9 sets, daily range): BP systolic 136–177; BP diastolic 61–74
--- NOTE | 2018-06-28 02:30 | NUR ---
2ND UNIT PRBC INFUSION COMPLETE. VITALS SIGNS REMAIN STABLE. PT ALERT & ORIENTED. COMPLETE ASSESSMENT PER FLOW-SHEET. NO OTHER NEEDS. WILL CONTINUE TO MONITOR.
[2018-06-28 05:43] LABS: BASOPHILS 0.2 % (0-2); EOSINOPHILS 3.7 % (0-7); IMMATURE GRANULOCYTES 0.3 % (0-5); LYMPHOCYTES 21.4 % (15-50); MCH 30.1 pg (26.0-34.0); MCHC 32.8 g/dL (31.0-37.0); MCV 91.6 fL (80.0-100.0); MEAN PLATELET VOLUME 10.4 fL (7.4-10.4); MONOCYTES 10.3 % (2-11); NEUTROPHILS 64.1 % (40-80); PLATELET COUNT 177 10x3/uL (130-400); RDW 15.2 % (11.5-14.5); WBC 8.8 10x3/uL (4.8-10.8)
[2018-06-28 05:55] LABS: HEMATOCRIT 33.8 % (36.0-48.0); HEMOGLOBIN 11.1 g/dL (12-16); RBC 3.69 10x6/uL (4.00-5.40)
[2018-06-28 06:28] LABS: ANION GAP 13.2 mmol/L (8-16); CALCIUM 8.2 mg/dL (8.5-10.1); CREATININE - SERUM 1.6 mg/dL (0.6-1.3); MAGNESIUM - SERUM 1.5 mg/dL (1.8-2.4); PHOSPHOROUS 3.8 mg/dL (2.5-4.9); POTASSIUM - SERUM 4.2 mmol/L (3.5-5.1)
--- NOTE | 2018-06-28 07:30 | NUR ---
AWAKE AND ALERT. ASSISTED WITH BED JENKINS.
--- NOTE | 2018-06-28 08:54 | NUR ---
SITTING UP IN BED EATING BREAKFAST. REPOSITIONED IN BED FOR COMFORT. LUNGS ARE CLEAR BIALTERALLY, NO COUGH NOTED. SKIN IS INTACT WITHOUT REDNESS EXCEPT INCISION TO LEFT SHOULDER WHICH HAS A DRY INTACT DRESSING IN PLACE. NEURO CHECKS TO LEFT ARM WNL. IV TO RIGHT WRIST IS PATENT WITHOUT REDNESS AT INSERTION SITE. VOIDED WITHOUT DIFFICULTY. DENIES NEEDS.
--- NOTE | 2018-06-28 10:00 | NUR ---
RESTING QUIETLY IN BED. REFUSED THERAPY THIS AM. WILL MONITOR.
--- NOTE | 2018-06-28 10:51 | NUR ---
Rehab Prescreening Consult recieved and the chart has been reviewed. She meets criteria for the ARU. She has a new PT/OT order that is pending. Rehab will accept as soon as patient is able to participate in the required 3 hrs of therapy a day that is required per Medicare guidelines. Discussed with the CM Shala. Alesha Jimenez RN Clinical Liaison, Rehab
--- NOTE | 2018-06-28 12:00 | NUR ---
FSBS 146. NO COVERAGE REQUIRED.
--- NOTE | 2018-06-28 13:00 | NUR ---
LUNCH SERVED IN ROOM. DENIES NEEDS. REFUSED TO GET OOB TO GO TO BR WITH PT.
--- NOTE | 2018-06-28 13:49 | MORECARE ---
CASE MANAGEMENT DISCHARGE SUMMARY PATIENT: MIKI JACKSON UNIT: [id number] ADM DATE: 06/25/18 AGE: 78 : 39 SEX: F ROOM/BED: D.2210 AUTHOR: BHARGAV,ANN PHYSICIAN: REFERRING PHYSICIAN: CAITIE CID MD DATE OF SERVICE: 06/28/18 Discharge Plan Patient Name: MIKI JACKSON Facility: [facility]:[place] : 1940 Planned Disposition: Home with Home Health Anticipated Discharge Date: Discharge Date: Expected LOS: Initial Reviewer: [id number] Initial Review Date: 06/25/2018 Generated: 06/28/18 2:49 pm Comments DCP- Discharge Planning Updated by [id number]: Shelby Medina on 06/28/18 12:[address] SPOKE WITH PATIENT AND SHE WOULD LIKE TO GO TO INPATIENT REHAB AT [facility], [place] WITH INPATIENT REHAB STATED THAT SHE WOULD ACCEPT HER WHEN SHE IS STABLE. IMM SERVED AND EXPLAINED DCP- Discharge Planning Updated by [email or web address]: Adriana Mcgill on 06/27/18 4:[address] PATIENT'S MENTAL STATUS HAS IMPROVED TODAY. SHE WAS VERY CONFUSED 06/26/18. CM COULD NOT INTERVIEW FOR DCP AT THAT TIME. CM CALLED TO SPEAK WITH HER HE WAS AT THE BEDSIDE BUT CM WAS ON ANOTHER UNIT. PATIENT HAS IMPROVED DRAMATICALLY THIS PM. CM EXPLAINED MD HAD ORDERED A CONSULT AND EXPLAINED CM ROLE. SHE STATED SHE COULD GIVE SOME INFORMATION. HER VISITED TODAY BUT LEFT EARLY DUE TO WEATHER. THE PATIENT KNOWS WHERE SHE IS AND WHAT HAS HAPPEN. SHE STATES SHE PLANS TO DISCHARGE TO HOME W/ HER PRESENT H/H PROVIDER, [facility]. DR LAMB IS HER PCP. DR CID IS HER ORTHOPEDIC MD. SHE STATES SHE JUST SAW DR LANGE THIS PM. PHARMACY - [facility] [address] DME - HAS WALKER AND CANE. WILL NEED TO VERIFY DME WITH THE . PATIENT DOES GIVE CM PERMISSION TO SPEAK WITH HER . WOULD BE APPROPRIATE TO MEET WITH PATIENT AND HER SPOUSE TO PLAN FOR CONTINUED CARE. CM TO FOLLOW. WILL VISIT TOMORROW AFTERNOON. DCP- Discharge Planning Updated by [email or web address]: Adriana Mcgill on 06/26/18 4:[address] CONSULT RECEIVED FOR DISCHARGE PLANNING. PATIENT VERY CONFUSED AND AGITATED. THE NURSE HAS SPOKEN WITH THE VIA PHONE. CM WILL F/U WITH THE PATIENT IS TOO CONFUSED TO PARTICIPATE. AT THIS TIME. Coverage Notice Reviewer: [id number] Tomer Medina Notice Issued Date-Time: 06/28/2018 13:40 Notice Type: IM Discharge Notice Notice Delivered To: Patient Relationship to Patient: Keno Dealer Name: Delivery Method: HAND - Hand Delivered Fátima Days: Prior Verbal Notification: Recipient Understood Notice: Yes Recipient Signature: Yes Med Rec Note Co-signed by Attending: Coverage Notice Comment: Last DP export: 06/27/18 4:41 pm Patient Name: MIKI JACKSON Page [phone] at 1349 All edits/amendments must be made on the electronic document DICTATION DATE: 06/28/188 CLINICAL NUTRITION MANAGER: ADAN 06/28/18 1348 RPT#: [id number] DC DATE: STATUS: ADM IN [facility] [address] [place] [address] END OF REPORT
--- NOTE | 2018-06-28 14:09 | NUR ---
OT NOTE: OT AND PT ATTEMPTED TO EVAL PT IN AM. SHE WAS ALERT AND ORIENTED AND REQUESTED TO WAIT UNTIL PM, SHE HAD VERY MINIMAL SLEEP THIS WEEKEND. PT WAS AWARE OF HER CONFUSION SHE EXPERIENCED OVER THE WEEKEND. ATTEMPTED TO EVAL IN PM AND PT REFUSED. REFUSED TO ATTEMPT TO GO TO BATHROOM, EVEN THOUGH SHE WANTED TO GO.. SHE WOULD NOT GET OUT OF BED. WILL RE ATTEMPT TOMORROW. FRENCH CONRAD, OTR/L
--- NOTE | 2018-06-28 18:50 | NUR ---
DIDN'T EAT BUT A FEW BITES OF SUPPER. REQUESTED AND GIVNE ONE HYDROCODONE PO FOR C/O LEFT SHOULDER PAIN LEVEL 8. WILL MOMITOR. NO CHANGES NOTED.
--- NOTE | 2018-06-28 20:30 | NUR ---
AWAKE,ALERT,NO COMPLAINTS VOICED AT PRESENT. IV INFUSING TO RFA WITHOUT REDNESS OR EDEMA NOTED. DRSG TO LEFT SHOULDER INTACT WITHOUT DRAINAGE. SHOULDER IMMOBILIZER INTACT. CL IN REACH
--- NOTE | 2018-06-29 03:11 | NUR ---
I have reviewed this patient and I concur with the Shift Assessment completed by the Licensed Practical Nurse today this shift.
[2018-06-29 05:18] VITALS: BP 171/78
[2018-06-29 06:37] LABS: BASOPHILS 0.1 % (0-2); EOSINOPHILS 3.3 % (0-7); HEMATOCRIT 33.4 % (36.0-48.0); HEMOGLOBIN 11.2 g/dL (12-16); IMMATURE GRANULOCYTES 0.3 % (0-5); LYMPHOCYTES 13.7 % (15-50); MCH 30.2 pg (26.0-34.0); MCHC 33.5 g/dL (31.0-37.0); MEAN PLATELET VOLUME 10.3 fL (7.4-10.4); MONOCYTES 11.6 % (2-11); PLATELET COUNT 203 10x3/uL (130-400); RBC 3.71 10x6/uL (4.00-5.40); RDW 15.1 % (11.5-14.5); WBC 7.7 10x3/uL (4.8-10.8)
[2018-06-29 07:02] LABS: ANION GAP 14.4 mmol/L (8-16); CALCIUM 8.4 mg/dL (8.5-10.1); CARBON DIOXIDE 23.6 mmol/L (21.0-32.0); CREATININE - SERUM 1.4 mg/dL (0.6-1.3)
[2018-06-29 09:17] VITALS: BP 188/80
[2018-06-29 09:17] LABS: IMMUNOGLOBULIN A 186 mg/dL (64-422)
--- NOTE | 2018-06-29 10:06 | NUR ---
NUTRITION F//U PT TOLERATING REG DIET, POOR PO INTAKE RECENT MEALS(~25%). WILL CONTINUE TO PROVIDE DIET, MONITOR INTAKE. RD FOLLOWING
[2018-06-29] MEDS ORDERED: LEVOFLOXACIN500 MG PO (11:05)
[2018-06-29] MEDS ORDERED: IPRAT-ALBUT 0.5-3 ML UPD (11:05)
[2018-06-29] MEDS ORDERED: Lovenox INJ SC (11:06)
[2018-06-29] MEDS ORDERED: NORCO-10 PO (11:06)
[2018-06-29] MEDS ORDERED: Narcan INJ IV (11:06)
[2018-06-29] MEDS ORDERED: PERCOCET 10-321 EAC1 PO (11:06)
[2018-06-29] MEDS ORDERED: ZOFRAN4 MG PO (11:07)
[2018-06-29] MEDS ORDERED: FLUTICASONE PRO16 GM NASAL (11:07)
[2018-06-29] MEDS ORDERED: COLACE100 MG PO (11:07)
[2018-06-29] MEDS ORDERED: HUMULIN R100 U/ML SC (11:07)
[2018-06-29] MEDS ORDERED: MUCINEX DM ER1 EAC1 PO (11:07)
[2018-06-29] MEDS ORDERED: TESSALON PERLE100 MG PO (11:07)
--- NOTE | 2018-06-29 11:24 | MORECARE ---
CASE MANAGEMENT DISCHARGE SUMMARY PATIENT: MIKI JACKSON UNIT: [id number] ADM DATE: 06/25/18 AGE: 78 : 39 SEX: F ROOM/BED: D.2210 AUTHOR: ANN DURANT PHYSICIAN: REFERRING PHYSICIAN: CAITIE CID MD DATE OF SERVICE: 06/29/18 Discharge Plan Patient Name: MIKI JACKSON Facility: [facility]:[place] : 1940 Planned Disposition: Home with Home Health Anticipated Discharge Date: Discharge Date: Expected LOS: Initial Reviewer: [email or web address] Initial Review Date: 06/25/2018 Generated: 06/29/18 12:24 pm Comments DCP- Discharge Planning Updated by [id number]: Shelby Medina on 06/29/18 10:[address] Patient Name: MIKI JACKSON Encounter No: [id number] : 1940 Primary Insurance: MEDICARE A & B Anticipated DC Date: Planned Disposition: Home with Home Health External Planned Provider: : DCP follow-up note: Patient and family in agreement with discharge plan. No changes to plan. Case management will follow and assist as needed. Shelby eMdina DCP- Discharge Planning Updated by [id number]: Shelby Medina on 06/28/18 12:[address] SPOKE WITH PATIENT AND SHE WOULD LIKE TO GO TO INPATIENT REHAB AT [facility] [place] WITH INPATIENT REHAB STATED THAT SHE WOULD ACCEPT HER WHEN SHE IS STABLE. IMM SERVED AND EXPLAINED DCP- Discharge Planning Updated by [email or web address]: Adriana Mcgill on 06/27/18 4:[address] PATIENT'S MENTAL STATUS HAS IMPROVED TODAY. SHE WAS VERY CONFUSED 06/26/18. CM COULD NOT INTERVIEW FOR DCP AT THAT TIME. CM CALLED TO SPEAK WITH HER HE WAS AT THE BEDSIDE BUT CM WAS ON ANOTHER UNIT. PATIENT HAS IMPROVED DRAMATICALLY THIS PM. CM EXPLAINED MD HAD ORDERED A CONSULT AND EXPLAINED CM ROLE. SHE STATED SHE COULD GIVE SOME INFORMATION. HER VISITED TODAY BUT LEFT EARLY DUE TO WEATHER. THE PATIENT KNOWS WHERE SHE IS AND WHAT HAS HAPPEN. SHE STATES SHE PLANS TO DISCHARGE TO HOME W/ HER PRESENT H/H PROVIDER, [facility]. DR LAMB IS HER PCP. DR CID IS HER ORTHOPEDIC MD. SHE STATES SHE JUST SAW DR LANGE THIS PM. PHARMACY - [facility] D[facility] - HAS WALKER AND CANE. WILL NEED TO VERIFY DME WITH THE . PATIENT DOES GIVE CM PERMISSION TO SPEAK WITH HER . WOULD BE APPROPRIATE TO MEET WITH PATIENT AND HER SPOUSE TO PLAN FOR CONTINUED CARE. CM TO FOLLOW. WILL VISIT TOMORROW AFTERNOON. DCP- Discharge Planning Updated by [email or web address]: Adriana Mcgill on 06/26/18 4:[address] CONSULT RECEIVED FOR DISCHARGE PLANNING. PATIENT VERY CONFUSED AND AGITATED. THE NURSE HAS SPOKEN WITH THE VIA PHONE. CM WILL F/U WITH THE PATIENT IS TOO CONFUSED TO PARTICIPATE. AT THIS TIME. Coverage Notice Reviewer: [email or web address] - Shelby Medina Notice Issued Date-Time: 06/28/2018 13:40 Notice Type: IM Discharge Notice Notice Delivered To: Patient Relationship to Patient: New Vehicle Sales Consultant Name: Delivery Method: HAND - Hand Delivered Fátima Days: Prior Verbal Notification: Recipient Understood Notice: Yes Recipient Signature: Yes Med Rec Note Co-signed by Attending: Coverage Notice Comment: Last DP export: 06/28/18 12:49 pm Patient Name: MIKI JACKSON Page [phone] at 1124 All edits/amendments must be made on the electronic document DICTATION DATE: 06/29/181123 SALES PERSON: ADAN 06/29/181123 RPT#: [id number] DC DATE: STATUS: ADM IN [facility] [address] [place] [address] END OF REPORT
[2018-06-29 12:45] VITALS: BP 186/86
--- NOTE | 2018-06-29 15:45 | NUR ---
IV DC WITH CATH INTACT, DC INSTUCTIONS GIVEN TO PT, GOING TO REHAB [id number] VIA WHEELCHAIR VIA HOSPTIAL STAFF IN STABLE CONDITON
--- NOTE | 2018-06-29 16:16 | MORECARE ---
CASE MANAGEMENT DISCHARGE SUMMARY PATIENT: MIKI JACKSON UNIT: [id number] ADM DATE: 06/25/18 AGE: 78 : 39 SEX: F ROOM/BED: D.2210 AUTHOR: BHARGAVDOC PHYSICIAN: REFERRING PHYSICIAN: CAITIE CID MD DATE OF SERVICE: 06/29/18 Discharge Plan Patient Name: MIKI JACKSON Facility: [facility]:[place] : 1940 Planned Disposition: Home with Home Health Anticipated Discharge Date: Discharge Date: 06/29/2018 Expected LOS: 0 Initial Reviewer: [id number] Initial Review Date: 06/25/2018 Generated: 06/29/18 5:16 pm Comments DCP- Discharge Planning Updated by [id number]: Shelby Medina on 06/29/18 10:[address] Patient Name: MIKI JACKSON Encounter No: [id number] : 1940 Primary Insurance: MEDICARE A & B Anticipated DC Date: Planned Disposition: Home with Home Health External Planned Provider: : DCP follow-up note: Patient and family in agreement with discharge plan. No changes to plan. Case management will follow and assist as needed. Shelby Medina DCP- Discharge Planning Updated by [email or web address]: Shelby Medina on 06/28/18 12:[address] SPOKE WITH PATIENT AND SHE WOULD LIKE TO GO TO INPATIENT REHAB AT [facility], [place] WITH INPATIENT REHAB STATED THAT SHE WOULD ACCEPT HER WHEN SHE IS STABLE. IMM SERVED AND EXPLAINED DCP- Discharge Planning Updated by [id number]: Adriana Mcgill on 06/27/18 4:[address] PATIENT'S MENTAL STATUS HAS IMPROVED TODAY. SHE WAS VERY CONFUSED 06/26/18. CM COULD NOT INTERVIEW FOR DCP AT THAT TIME. CM CALLED TO SPEAK WITH HER HE WAS AT THE BEDSIDE BUT CM WAS ON ANOTHER UNIT. PATIENT HAS IMPROVED DRAMATICALLY THIS PM. CM EXPLAINED MD HAD ORDERED A CONSULT AND EXPLAINED CM ROLE. SHE STATED SHE COULD GIVE SOME INFORMATION. HER VISITED TODAY BUT LEFT EARLY DUE TO WEATHER. THE PATIENT KNOWS WHERE SHE IS AND WHAT HAS HAPPEN. SHE STATES SHE PLANS TO DISCHARGE TO HOME W/ HER PRESENT H/H PROVIDER, [facility]. DR LAMB IS HER PCP. DR CID IS HER ORTHOPEDIC MD. SHE STATES SHE JUST SAW DR LANGE THIS PM. PHARMACY - [facility] DME - HAS WALKER AND CANE. WILL NEED TO VERIFY DME WITH THE . PATIENT DOES GIVE CM PERMISSION TO SPEAK WITH HER . WOULD BE APPROPRIATE TO MEET WITH PATIENT AND HER SPOUSE TO PLAN FOR CONTINUED CARE. CM TO FOLLOW. WILL VISIT TOMORROW AFTERNOON. DCP- Discharge Planning Updated by [id number]: Adriana Mcgill on 06/26/18 4:[address] CONSULT RECEIVED FOR DISCHARGE PLANNING. PATIENT VERY CONFUSED AND AGITATED. THE NURSE HAS SPOKEN WITH THE VIA PHONE. CM WILL F/U WITH THE PATIENT IS TOO CONFUSED TO PARTICIPATE. AT THIS TIME. Coverage Notice Reviewer: [id number] Tomer Medina Notice Issued Date-Time: 06/28/2018 13:40 Notice Type: IM Discharge Notice Notice Delivered To: Patient Relationship to Patient: Gauge Controller Name: Delivery Method: HAND - Hand Delivered Fátima Days: Prior Verbal Notification: Recipient Understood Notice: Yes Recipient Signature: Yes Med Rec Note Co-signed by Attending: Coverage Notice Comment: Last DP export: 06/29/18 10:24 am Patient Name: MIKI JACKSON Page [phone] at 1616 All edits/amendments must be made on the electronic document DICTATION DATE: 06/29/181615 HUMAN RESOURCES REPRESENTATIVE: ADAN 06/29/186 RPT#: [id number] DC DATE:06/29/18 STATUS: DIS IN [facility] [id number] [place] [address] END OF REPORT
[2018-06-30 06:16] LABS: IGG SUBCLASS 1 298 mg/dL (248-810); IGG SUBCLASS 2 159 mg/dL (130-555); IGG SUBCLASS 3 33 mg/dL (15-102); IGG SUBCLASS 4 7 mg/dL (2-96); IMMUNOGLOBULIN G 514 mg/dL (700-1600)
== END 2018-06-29 16:03 | DRG 483 ==
LOC: D.SDCHOLD 06-25 05:00 → D.MS 06-25 05:00 → D.SDCHOLD 06-25 05:10 → D.MS 06-25 10:48
PROVIDERS: Anesthesiology; Internal Medicine Nephrology; Internal Medicine Pulmonary Disease; ADMIT Orthopaedic Surgery; ATTEND Orthopaedic Surgery
PROC: 0RRJ00Z Replacement of Right Shoulder Joint with Reverse Ball and Socket Synthetic Substitute, Open Approach (ICD-10-PCS; principal; 2018-06-25 07:30)
DX: T84.190A Other mechanical complication of internal fixation device of right humerus, initial encounter (principal); J18.9 Pneumonia, unspecified organism; G92 Toxic encephalopathy; D62 Acute posthemorrhagic anemia; N17.9 Acute kidney failure, unspecified; N39.0 Urinary tract infection, site not specified; K21.9 Gastro-esophageal reflux disease without esophagitis; T41.45XA Adverse effect of unspecified anesthetic, initial encounter; E11.9 Type 2 diabetes mellitus without complications; I10 Essential (primary) hypertension; E78.5 Hyperlipidemia, unspecified; E03.9 Hypothyroidism, unspecified; I48.91 Unspecified atrial fibrillation

== ENCOUNTER 2018-06-29 17:27 | Inpatient (IN) | payer MEDICARE, OTHER ==
[~2018-06-29] VITALS: Ht 157.5 cm; Wt 59.4 kg
[~2018-06-29 17:27] MED LIST changes: +COLACE100 MG PO; +FLUTICASONE PRO16 GM NASAL; +HUMULIN R100 U/ML SC; +IPRAT-ALBUT 0.5-3 ML UPD; +LEVOFLOXACIN500 MG PO; +Lovenox INJ SC; +MUCINEX DM ER1 EAC1 PO; +NORCO-10 PO; +Narcan INJ IV; +PERCOCET 10-321 EAC1 PO; +RESTORIL15 MG PO; +TESSALON PERLE100 MG PO; +ZOFRAN4 MG PO
--- NOTE | 2018-06-29 17:52 | NUR ---
NEW ADMIT. IMMOBILIZER/SLING L ARM. DRESSING INTACT. 2+ EDEMA L ANKLE. ALERT AND ORIENTED. SKIN CDI.CL IN REACH.
[2018-06-29 17:54] VITALS: BP 179/70
--- NOTE | 2018-06-29 18:39 | NUR ---
NO CHANGE IN ASSESSMENT. CL IN REACH. NO C/O PAIN.
--- NOTE | 2018-06-29 19:43 | NUR ---
PATIENT RECEIVED SITTING UP IN BED WATCHING TV. PATIENT VITAL SIGNS & ASSESSMENT DONE. PATIENT LEFT ARM IN SLING. BED LOW. CALL LIGHT WITHIN REACH. WILL CONTINUE TO MONITOR.
[2018-06-29 20:00] VITALS: BP 133/61
--- NOTE | 2018-06-30 03:08 | NUR ---
PT ASLEEP NO NEEDS NOTED FLUIDS AND CALL LIGHT WITHIN REACH
--- NOTE | 2018-06-30 04:16 | NUR ---
PATIENT EYES CLOSED. RESPIRATIONS 18 & EVEN. BED LOW. ALARM ON. CALL LIGHT WITHIN REACH. WILL CONTINUE TO MONITOR.
--- NOTE | 2018-06-30 07:27 | NUR ---
RESTING QUIETLY WO C/O PAIN. RESP EVEN AND UNLABORED. CL IN REACH.
[2018-06-30 08:00] VITALS: BP 189/72
--- NOTE | 2018-06-30 11:57 | NUR ---
HAD SHOWER THIS AM. NO C/O PAIN. IN THERAPY AT THIS TIME.
[2018-06-30 13:11] VITALS: Ht 157.5 cm; Wt 59.4 kg
--- NOTE | 2018-06-30 16:52 | NUR ---
CARE TEAM MEETING: PATIENT IS NEW TO UNIT AND WILL BE RA AT NEXT MEETING. DISCHARGE PLANS ARE FOR PATIENT TO RETURN HOME WITH SPOUSE. WILL CONTINUE TO FOLLOW WITH PATIENT.
--- NOTE | 2018-06-30 16:57 | NUR ---
NO C/O PAIN. RESP EVEN AND UNLABORED. CL IN REACH.
--- NOTE | 2018-06-30 20:03 | NUR ---
THE PATIENT WAS LYING IN BED WHEN STAFF ENTERED HER AREA. BED IS IN THE LOW POSITION WITH SIDERAILS X2 AND CALL LIGHT WITHIN REACH. THE PATIENT DEMONSTRATES APPPROPRIATE USE OF A CALL LIGHT. THE PATIENT APPEARS COMFORTABLE WITH NO QUESTIONS OR CONCERNS AT THIS TIME.
[2018-06-30 21:54] VITALS: BP 135/42
[2018-06-30 21:55] VITALS: BP 120/62
--- NOTE | 2018-07-01 02:16 | NUR ---
THE PATIENT IS AWAKE, USING THE BED JENKINS. SHE APPEARS COMFORTABLE AND HAS NO OTHER QUESTIONS OR CONCERNS AT THIS TIME.
[2018-07-01 08:00] VITALS: BP 162/63
--- NOTE | 2018-07-01 08:15 | NUR ---
PT RESTING IN BED WITH EYES OPEN CALL LIGHT IN REACH WILL MONITER EATING BREAKFAST WILL MONITER
--- NOTE | 2018-07-01 20:59 | NUR ---
ASSISTED PT WITH BEDPAN.
[2018-07-01 21:20] VITALS: BP 145/49
--- NOTE | 2018-07-02 01:45 | NUR ---
REST IN BED, RESP EVEN, NO DISTRESS, CALL LIGHT IN REACH.
--- NOTE | 2018-07-02 01:55 | NUR ---
RESTING IN BED WITH RESPIRATIONS UNLABORED. SLEEPS AT INTERVALS. NO DISTRESS NOTED. CALL LIGHT IN REACH.
--- NOTE | 2018-07-02 04:46 | NUR ---
REST IN BED, CALL LIGHT IN REACH.
[2018-07-02 07:46] LABS: BASOPHILS 0.3 % (0-2); EOSINOPHILS 1.8 % (0-7); HEMATOCRIT 32.9 % (36.0-48.0); HEMOGLOBIN 10.8 g/dL (12-16); IMMATURE GRANULOCYTES 0.8 % (0-5); LYMPHOCYTES 15.7 % (15-50); MCH 29.7 pg (26.0-34.0); MCHC 32.8 g/dL (31.0-37.0); MCV 90.4 fL (80.0-100.0); MEAN PLATELET VOLUME 9.8 fL (7.4-10.4); NEUTROPHILS 73.4 % (40-80); RBC 3.64 10x6/uL (4.00-5.40); RDW 14.8 % (11.5-14.5); WBC 7.3 10x3/uL (4.8-10.8)
[2018-07-02 07:54] LABS: ANION GAP 17.3 mmol/L (8-16); CALCIUM 8.3 mg/dL (8.5-10.1); CARBON DIOXIDE 23.4 mmol/L (21.0-32.0); CREATININE - SERUM 1.6 mg/dL (0.6-1.3); PLATELET COUNT 270 10x3/uL (130-400); POTASSIUM - SERUM 3.7 mmol/L (3.5-5.1)
[2018-07-02 08:00] VITALS: BP 178/71
--- NOTE | 2018-07-02 08:15 | NUR ---
PT UP IN CHAIR IN ROOM EATING BREAKFAST TOLERATING WELL WILL MONITER
--- NOTE | 2018-07-02 19:06 | NUR ---
PATIENT IS RESTING IN HER BED. SHE REQUESTS HER MENU SO SHE MAY FILL IT OUT. NO OTHER REQUESTS AT THIS TIME. BED IS DOWN LOW WITH SIDE RAILS UP X2. CALL LIGHT IS IN REACH.
[2018-07-02 20:22] VITALS: BP 142/49
--- NOTE | 2018-07-02 22:15 | NUR ---
PT IS RESTING QUIETLY IN BED WITH EYES CLOSED. RESPS ARE EVEN AND UNLABORED. NO ACUTE DISTRESS NOTED.
--- NOTE | 2018-07-03 00:25 | NUR ---
RESTING IN BED WITH EYES CLOSED.
--- NOTE | 2018-07-03 05:51 | NUR ---
PT ASSISTED TO USE BEDPAN WITH MOD ASSIST. NO FURTHER NEEDS VOICED.
[2018-07-03 08:00] VITALS: BP 159/56
--- NOTE | 2018-07-03 08:00 | NUR ---
POS UP IN BED FOR BREAKFAST.
--- NOTE | 2018-07-03 12:00 | NUR ---
SITTING UP EATING LUNCH.CL IN REACH.
--- NOTE | 2018-07-03 19:25 | NUR ---
GREETED PATIENT AND INTRODUCED MYSELF HER NURSE FOR THE EVENING. HELPED PATIENT TO REALIGN SLING ON LEFT ARM AND REPOSITION IN BED. PATIENT DENIES ANY FURTHER NEEDS AT THIS TIME. CALL LIGHT IN REACH.
[2018-07-03 20:03] VITALS: BP 120/42
--- NOTE | 2018-07-04 04:58 | NUR ---
PATIENT ASLEEP LAYING IN SUPINE POSITION. HOB AT 30 DEGREES. RESPIRATIONS EVEN. NO SIGNS OF DISTRESS. CALL LIGHT IN REACH.
[2018-07-04 08:32] VITALS: BP 127/35
--- NOTE | 2018-07-04 12:26 | NUR ---
PATIENT ALERT AND ORIENTED THIS MORNING. ATE 100% OF BREAKFAST. C/O SHOULDER PAIN AND WAS MEDICATED WITH PRN PERCOCET WITH GOOD RESULTS. SLEPT OFF AND ON DURING THE MORNING. BLOOD GLUCOSE AT 1130 78. ENCOURAGED TO EAT LUNCH DUE TO LOW BLOOD SUGAR BUT WANTED TO EAT PUDDING INSTEAD SINCE SHE STATED THAT SHE HAS A UPSET STOMACH. CALL LIGHT WITHIN REACH. WILL CONTINUE TO MONITOR.
--- NOTE | 2018-07-04 19:45 | NUR ---
PATIENT IS RESTING IN HER BED. HER BED IS DOWN LOW WITH SIDE RAILS UP X2. CL IS IN REACH.
--- NOTE | 2018-07-04 20:12 | NUR ---
ASSIST PT TO BATHROOM.
[2018-07-04 20:16] VITALS: BP 154/58
--- NOTE | 2018-07-04 20:45 | NUR ---
PT REFUSED FINGER STICK FOR BLOOD SUGAR, STATES:" FINGER HURT FROM STICK."
--- NOTE | 2018-07-05 01:00 | NUR ---
REST QUIELTY IN BED, RESP EVEN, NO DISTRESS. CALL LIGHT IN REACH.
--- NOTE | 2018-07-05 05:16 | NUR ---
REST QUIELTY IN BED, CALL LIGHT IN REACH.
[2018-07-05 07:17] LABS: BASOPHILS 0.4 % (0-2); EOSINOPHILS 0.4 % (0-7); HEMOGLOBIN 11.1 g/dL (12-16); LYMPHOCYTES 21.3 % (15-50); MCH 29.7 pg (26.0-34.0); MCHC 32.6 g/dL (31.0-37.0); MCV 90.9 fL (80.0-100.0); MEAN PLATELET VOLUME 9.6 fL (7.4-10.4); MONOCYTES 12.1 % (2-11); NEUTROPHILS 64.8 % (40-80); PLATELET COUNT 290 10x3/uL (130-400); RBC 3.74 10x6/uL (4.00-5.40); RDW 14.9 % (11.5-14.5); WBC 5.2 10x3/uL (4.8-10.8)
[2018-07-05 07:23] LABS: CALCIUM 8.5 mg/dL (8.5-10.1); CARBON DIOXIDE 26.1 mmol/L (21.0-32.0); CREATININE - SERUM 1.5 mg/dL (0.6-1.3); POTASSIUM - SERUM 4.1 mmol/L (3.5-5.1)
[2018-07-05 08:02] VITALS: BP 156/58
--- NOTE | 2018-07-05 10:43 | NUR ---
PATIENT ALERT AND ORIENTED THIS MORNING. STATES SHE SLEPT OK LAST NIGHT. ATE 100% OF BREAKFAST. DR JOSÉ IN TO SEE PATIENT THIS MORNING. WILL TEST FOR FLU A PRECAUTION SINCE SHE HAS HAD A COUGH OVER THE WEEKEND. COUGH IS BETTER THIS MORNING. STATES THAT BREATHING TREATMENT THAT SHE RECIEVED LAST NIGHT WAS HELPFUL VITAL SIGNS STABLE. FLU SWAB OBTAINED AND SENT TO LAB. AWAITING RESULTS. PATIENT RESTING QUIETLY AT THIS TIME. WILL CONTINUE TO MONITOR.
--- NOTE | 2018-07-05 11:04 | NUR ---
Nutrition Follow Up: Pt was in therapy at the time of RD visit. Interview deferred. Diet: Regular PO Intake: 58% meal avg BM: 07/04/18 Meds and labs reviewed Rec continue current diet. Will continue to honor food preferences. RD following.
--- NOTE | 2018-07-05 12:13 | NUR ---
PATIENT TESTED NEGATIVE FOR INFLUENZA. WILL BE MOVED TO [facility]/
--- NOTE | 2018-07-05 12:55 | NUR ---
PATIENT ADMITTED TO REHAB FROM ACUTE FLOOR. SHE IS A CLIENT OF [facility]. DR. LAMB IS HER PCP AND DME AT HOME IS WALKER AND A CANE. SHE WILL NEED FOLLOW UP APPOINTMENT WITH DR. RICO AT DISCHARGE. PLANS ARE FOR HER TO RETURN HOME WITH HER SPOUSE.
--- NOTE | 2018-07-05 17:39 | NUR ---
PATIENT MOVED TO ROOM 1118A THIS MORNING AROUND 11:30. SEEMS TO LIKE HER NEW ROOM. RESTED MOST OF THE AFTERNOON AFTER THERAPY. WILL CONTINUE TO MONITOR. CALL LIGHT WITHIN REACH
[2018-07-05 20:00] VITALS: BP 139/83
--- NOTE | 2018-07-05 20:10 | NUR ---
THEPATIENT WAS AWAKE AND WATCHING TELEVISION WHEN STAFF ENTERED HER ROOM. BED IS IN THE LOW POSITION WITH SIDERAILS X2 AND CALL LIGHT WITHIN REACH. PATIENT WAS EDUCATED ON THE USE OF A CALL LIGHT AND DEMONSTRATED UNDERSTANDING VIA TEACHBACK METHOD. THE PATIENT APPEARS COMFORTABLE WITH NO QUESTIONS OR CONCERNS AT THIS TIME.
--- NOTE | 2018-07-06 02:10 | NUR ---
PATIENT IS AWAKE AND ASKED FOR ICE. THE PATIENT APPEARS COMFORTABLE WITH NO QUESTIONS OR CONCERNS AT THIS TIME.
[2018-07-06 08:00] VITALS: BP 152/57
--- NOTE | 2018-07-06 12:26 | NUR ---
PT IS ALERT AND ORIENTED X 3. PT IS SITTING IN W/C READING NEWSPAPER. ASSESSMENT COMPLETE. NO C/O PAIN OR DISCOMFORT NOTED OR VOICED AT THIS TIME. NO S/SX OF DISTRESS NOTED. WILL CONTINUE TO MONITOR FOR SAFETY AND CHANGES.
--- NOTE | 2018-07-06 19:35 | NUR ---
PATIENT RECEIVED SITTING UP IN BED. PATIENT C/O NAUSEA. PATIENT GIVEN ZOFRAN. PATIENT ORDER FOR INFLUENZA SWAB. COMPLETED & SENT TO LAB. PATIENT ASSESMENT & VITAL SIGNS DONE. BED LOW. ALARM ON. CALL LIGHT WITHIN REACH. WILL CONTINUE TO MONITOR.
[2018-07-06 19:57] VITALS: BP 134/65
--- NOTE | 2018-07-07 01:27 | NUR ---
RESTING IN BED WITH RESPIRATIONS UNLABORED. HAD TEMPERATURE OF 100.4 AT BEGINING OF SHIFT. TEMPERATURE NOW 98.8. FLU SWAB RESULTS PENDING. CALL LIGHT IN REACH.
--- NOTE | 2018-07-07 04:03 | NUR ---
PATIENT EYES CLOSED. RESPIRATIONS 18 & EVEN. PATIENT EASY TO AROUSE. BED LOW. ALARM ON. CALL LIGHT WITHIN REACH. WILL CONTINUE TO MONITOR.
--- NOTE | 2018-07-07 05:36 | NUR ---
PATIENT THYROID PILL DROPPED IN FLOOR. ANOTHER THYROID 75 MCG OUT OF PYXIS.
[2018-07-07 07:31] LABS: BASOPHILS 0.4 % (0-2); EOSINOPHILS 1.5 % (0-7); HEMATOCRIT 35.6 % (36.0-48.0); HEMOGLOBIN 11.8 g/dL (12-16); IMMATURE GRANULOCYTES 0.8 % (0-5); LYMPHOCYTES 20.3 % (15-50); MCH 29.9 pg (26.0-34.0); MCHC 33.1 g/dL (31.0-37.0); MCV 90.4 fL (80.0-100.0); MEAN PLATELET VOLUME 9.6 fL (7.4-10.4); MONOCYTES 11.5 % (2-11); NEUTROPHILS 65.5 % (40-80); PLATELET COUNT 247 10x3/uL (130-400); RBC 3.94 10x6/uL (4.00-5.40); RDW 14.8 % (11.5-14.5); WBC 5.3 10x3/uL (4.8-10.8)
[2018-07-07 07:39] LABS: ANION GAP 11.3 mmol/L (8-16); CALCIUM 8.1 mg/dL (8.5-10.1); CARBON DIOXIDE 28.9 mmol/L (21.0-32.0); CREATININE - SERUM 1.6 mg/dL (0.6-1.3); POTASSIUM - SERUM 4.2 mmol/L (3.5-5.1)
[2018-07-07 08:00] VITALS: BP 132/48
--- NOTE | 2018-07-07 08:15 | NUR ---
PT RESTING IN BED WITH EYES OPEN CALL LIGHT IN REACH NO PROBLEMS WILL MONITER
--- NOTE | 2018-07-07 19:45 | NUR ---
PT SITTING UP IN BED WATCHING TV. CALL LIGHT IN REACH. PT DENIES NEEDS OR PAIN AT THIS TIME. BED IN LOW. SIDE RAILS X2. RESP EVEN AND UNLABORED. WILL CONTINUE TO MONITOR.
[2018-07-07 21:19] VITALS: BP 122/33
--- NOTE | 2018-07-08 00:57 | NUR ---
PT RESTING QUIETLY. CALL LIGHT IN REACH. NO SIGNS OF DISTRESS OR PAIN.
--- NOTE | 2018-07-08 05:31 | NUR ---
PT RESTING QUIETLY. CALL LIGHT IN REACH. NO SIGNS OF DISTRESS OR PAIN
[2018-07-08 08:14] VITALS: BP 136/42
--- NOTE | 2018-07-08 08:15 | NUR ---
PT RESTING IN BED WITH EYES OPEN CALL LIGHT IN REACH NO PROBLEMS WILL MONITER
--- NOTE | 2018-07-08 18:20 | NUR ---
PT UP IN WHEELCHAIR CALL LIGHT IN REACH WILL MONITER
--- NOTE | 2018-07-08 19:39 | NUR ---
PT SITTING UP IN BED WATCHING TV. CALL LIGHT IN REACH. BED IN LOW. SIDE RAILS X2. RESP EVEN AND UNLABORED. PT DENIES NEEDS OR PAIN AT THIS TIME. INTRODUCED SELF TO PT. WILL CONTINUE TO MONITOR.
[2018-07-08 20:57] VITALS: BP 102/34
--- NOTE | 2018-07-09 00:10 | NUR ---
TOILETED PT. PT BACK IN BED LYING DOWN. CALL LIGHT IN REACH. PT DENIES NEEDS OR PAIN AT THIS TIME.
--- NOTE | 2018-07-09 04:22 | NUR ---
PT ASLEEP NO NEEDS NOTED FLUIDS AND CALL LIGHT WITHIN REACH
--- NOTE | 2018-07-09 04:49 | NUR ---
PT RESTING QUIETLY. CALL LIGHT IN REACH. NO SIGNS OF DISTRESS OR PAIN. EYES CLOSED.
[2018-07-09 08:00] VITALS: BP 124/41
--- NOTE | 2018-07-09 08:00 | NUR ---
PATIENT IS ALERT/ORIENT. USING CALL LIGHT FOR NEEDS. VOICES NO NEEDS AT THIS TIME. WILL CONTINUE WITH PLAN OF CARE
--- NOTE | 2018-07-09 09:15 | NUR ---
DR Janis JOSÉ INTO SEE PATIENT. NEW ORDERS RECEIVED
--- NOTE | 2018-07-09 11:20 | NUR ---
PATIENT IN REHAB ROOM. WORKING WITH PHYSICAL THERAPIST. DENIES ANY PAIN/DISC AT THIS TIME.
--- NOTE | 2018-07-09 12:00 | NUR ---
GLUCOSE LEVEL 80. NO SLIDING SCALE INSULIN GIVEN PER ORDER.
--- NOTE | 2018-07-09 12:42 | NUR ---
Nutrition Follow Up: Pt stated that her appetite is improving. She said that she is unable to eat large amounts at a time. RD encouraged pt to continue with good po intake as able. Diet: ADA PO Intake: 78% meal avg BM: 07/06/18 Meds and labs reviewed Rec continue current diet. RD following.
--- NOTE | 2018-07-09 13:00 | NUR ---
PATIENT ATE 80% OF LUNCH.
--- NOTE | 2018-07-09 14:55 | NUR ---
PATIENT HELPED INTO BATHROOM. STAND BY ASST OF ONE. PATIENT IS CONT OF B/B. HELPED BACK INTO BED WITH STAND BY ASST.
--- NOTE | 2018-07-09 17:01 | RHP ---
PATIENT: MIKI JACKSON MEDICAL RECORD: [id number] ACCOUNT: [id number] LOCATION:[facility].1118 : 39 ADMISSION DATE: 06/29/18 REHABILITATION HISTORY AND PHYSICAL EXAMINATION POST ADMISSION PHYSICIAN EXAMINATION DATE OF ADMISSION TO THE REHAB: 06/29/2018. ADMITTING DIAGNOSIS: Acute metabolic encephalopathy. HISTORY OF PRESENT ILLNESS: The patient is a 78-year-old female patient who is being admitted with postop acute metabolic encephalopathy. She was admitted to the hospital on 06/25/2018 for revision of a total shoulder due to a failed ORIF of a right total shoulder. Her past medical history, she has had neuropathy, hypothyroidism, hypertension, chronic edema. She has had 2 separate incidents of pulmonary embolism, acid reflux, chronic systolic heart failure, atrial fib, got a history of gastric bypass, chronic pain, depression and anxiety. On postop day#1, she became confused, agitated and hypotensive, was trying to climb out of bed. She had to be placed in a Pietro bed for her safety. She had acute blood loss anemia with an H&H of 6.7 and 21.6. She has received a total of 3 units packed of red blood cells. She had hypoxia. She does have some developing pneumonia versus atelectasis on her x-ray of her chest. Pulmonary has seen her. She has been placed on Levaquin, neb treatments. On postop day #3, she was alert and oriented, removed from the Pietro bed with working with PT, a recent history of ankle fracture, but is weightbearing as tolerated on this at this time. Previously, she was moderately independent with ADLs and mobility using a cane or walker. Currently, she is mod to max assist with ADLs and mobility due to her history of recent falls and unsteadiness, history of a left ankle fracture. She is nonweightbearing in her right arm postop. She wants to be able to gain her strength and return home. COMORBIDITIES: Include metabolic encephalopathy, asthma, acute blood loss anemia, chronic systolic CHF, atrial fib, restless legs, history of gastric bypass, hyperkalemia, hypertension, hyperlipidemia, hypomagnesemia, hyponatremia, CHF, diabetes, hyperglycemia, and acute kidney injury. PAST MEDICAL HISTORY: Significant for neuropathy, cataracts, hearing loss, diabetes, thyroid problems, edema, heart murmur, hypertension, asthma, pneumonia, pulmonary embolus, acid reflux, diverticulitis. PAST SURGICAL HISTORY: Includes a gastric bypass, shoulder surgery. She has had a hysterectomy, gallbladder, and ankle surgery. ALLERGIES: KEFLEX AND LATEX. CURRENT MEDICATIONS: Include Floranex 460 mg daily, Cozaar 50 mg daily, Synthroid 75 mcg daily, Levaquin 500 mg daily, Flonase nasal spray daily. She is on Colace 100 mg b.i.d., metformin 1000 mg b.i.d., Neurontin 400 mg b.i.d., instant glucose daily on a glucose replacement protocol. She is on Humulin low-resistant sliding scale with Humulin R. She is on Amorita 10/325 one tab q.4 hours p.r.n., Mucinex D 1 tab b.i.d., Cymbalta 60 mg b.i.d., Tessalon Perles 100 mg t.i.d., DuoNeb updrafts as needed, Xalatan eyedrops 1 drop q.h.s., Zofran 4 mg q.4 hours p.r.n., Zanaflex 2 mg b.i.d. p.r.n., Betapace 80 mg b.i.d. She is on Zocor 40 mg q.h.s., and Requip 0.5 mg q.h.s. HISTORY AND PHYSICAL [id number] MIKI JACKSON HABITS: No alcohol or tobacco use. FAMILY HISTORY: Noncontributory. SOCIAL HISTORY: As above. The patient hopes to be able to return home and get back to her prior level of functioning. REVIEW OF SYSTEMS: GENERAL: Does complain of weakness and fatigue. HEENT: Denies cold, cough, or congestion. CARDIOVASCULAR: Denies chest pain. PHYSICAL EXAMINATION: VITAL SIGNS: Her vital signs are stable. She is afebrile. GENERAL: A well-developed elderly female, in no acute distress, alert upon exam. HEENT: Normocephalic and atraumatic. Mucosa moist. NECK: Supple. No lymphadenopathy. LUNGS: Clear at this time. HEART: Irregular rate and rhythm. She does have a holosystolic murmur. ABDOMEN: Benign. EXTREMITIES: She does have a sling in place in her shoulder and also postop changes to her ankle. NEUROLOGIC: She does have noted proximal muscle weakness. ASSESSMENT: This is a 78-year-old female patient admitted to the rehab with a working diagnosis of postop metabolic encephalopathy. The patient has potential to make improvement. We instituted the following multidisciplinary therapies including, but not limited to physical, occupational, respiratory, speech, nutritional services, prosthetics and orthotics. Given her complex medical conditions and risks for more complications, rehabilitation services cannot be provided at a low level of care such as correction facility. PLAN: 1. Admit to [facility] rehab for an intensive inpatient therapy to include the following disciplines: A. Physical therapy to improve gait, all transfer skills and bed mobility to a modified independent level. B. Occupational therapy to improve activities of daily living to a modified independent level. C. Case management to assist with discharge planning and placement options. D. Nutrition to assist with nutritional needs. E. Rehabilitation nursing to assist in monitoring the patient's underlying medical conditions and to assist with any type of bowel or bladder management. 2. The patient's current medicines and medical care will be continued. 3. I am going to watch her blood counts closely and will check these on a regular basis. 4. I am going to discuss her with care team today staffing at noon and I will see her again on Thursday a.m. TRANSINT:[id number] Voice Confirmation ID: [id number] DOCUMENT ID: [id number] REJI notes whether there has been none or any medical/functional change since admission: HISTORY AND PHYSICAL [id number] MIKI JACKSON E - No change since the PAS REJI attests patient continues to be appropriate for IRF: - Remains appropriate for the ARU PENG JOSÉ MD at 1701 CC: [id number] DICTATION DATE: 06/30/18 0935 GAME SHOW HOST: 06/30/18 0955 ADM IN [facility] [address] [place] [address]
--- NOTE | 2018-07-09 19:13 | NUR ---
PATIENT IS RESTING IN HER BED. DENIES ANY NEEDS. BED IS DOWN LOW WITH SIDE RAILS UP X2. CALL LIGHT IN REACH.
[2018-07-09 22:32] VITALS: BP 100/68
--- NOTE | 2018-07-09 23:41 | NUR ---
PT IS RESTING QUIETLY IN BED WITH EYES OPEN. ASSISTED TO THE BATHROOM WITH MIN ASSIST. SMALL LOOSE BM NOTED.
--- NOTE | 2018-07-10 03:33 | NUR ---
PT RESTING IN BED WITH EYES CLOSED. NO DISTRESS NOTED.
[2018-07-10 08:19] VITALS: BP 158/40
--- NOTE | 2018-07-10 08:54 | NUR ---
PT RESTING IN BED WITH EYES OPEN CALL LIGHT IN REACH WILL MONITER
--- NOTE | 2018-07-10 10:12 | NUR ---
THE PATIENT IS LYING IN BED AND WATCHING TELEVISION. SHE APPEARS COMFORTABLE AND HAS NO QUESTIONS OR COCNERNS AT THIS TIME.
--- NOTE | 2018-07-10 18:39 | NUR ---
PT RESTING IN BED WITH EYES OPEN CALL LIGHT IN REACH NO PROBLEMS WILL MONITER
[2018-07-10 19:50] VITALS: BP 167/44
--- NOTE | 2018-07-10 20:00 | NUR ---
PT RESTING IN BED WITH EYES OPEN. SHE VOICED THAT HER SLING WAS CHOKING HER. SLING READJUSTED AT THIS TIME WITH VERBAL RELIEF VOICED. PT HAS HER LEFT FOOT IMMOBILIZER OFF, AND IS REFUSING TO PUT IT BACK ON. DRESSING TO LEFT SHOULDER IS CDI. SR'S ARE UP X 2 IN BED. CALL LIGHT AND BEDSIDE TABLE ARE WITHIN EASY REACH
--- NOTE | 2018-07-10 22:34 | NUR ---
PT RESTING IN BED WITH EYES CLOSED. AWOKE EASILY TO VERBAL STIMULI. MEDICATED WITH HS RESTORIL PER
--- NOTE | 2018-07-10 23:59 | NUR ---
RESTING IN BED WITH RESPIRATIONS UNLABORED. NO DISTRESS NOTED. CALL LIGHT IN REACH.
--- NOTE | 2018-07-11 04:37 | NUR ---
PT IS RESTING QUIETLY IN BED WITH EYES CLOSED. RESPS ARE EVEN AND UNLABORED. NO ACUTE DISTRESS NOTED.
--- NOTE | 2018-07-11 07:33 | NUR ---
TOILETED PT. PT SITTING UP IN WHEELCHAIR EATING BREAKFAST. DENIES NEEDS OR PAIN AT THIS TIME. RESP EVEN AND UNLABORED. WILL CONTINUE TO MONITOR.
[2018-07-11 08:12] VITALS: BP 121/45
--- NOTE | 2018-07-11 09:11 | NUR ---
PT BACK IN BED. CALL LIGHT IN REACH. DENIES NEEDS AT THIS TIME.
--- NOTE | 2018-07-11 11:30 | NUR ---
PT SITTING UP IN BED COLORING. CALL LIGHT IN REACH. DENIES NEEDS AT THIS TIME
--- NOTE | 2018-07-11 15:43 | NUR ---
PT DRESSING HAS BEEN ON SINCE 07/02/18. THIS NURSE REMOVED DRESSING AND PAGED ORTHO VIRGIE AND HODAN TO SEE IF CHADWICK WERE ABLE TO BE REMOVED, IT IS POST OP DAY 17. INCISION IS CLEAN AND DRY AND INTACT. DRESSING HAD SCANT DRAINAGE. WILL CONTINUE TO MONITOR. WAITING FOR CALL BACK.
--- NOTE | 2018-07-11 17:16 | NUR ---
DR. PETTIT CALLED BACK AND SAID TO ASK THURSDAY MORNING ABOUT REMOVING CHADWICK.
--- NOTE | 2018-07-11 18:12 | NUR ---
PATIENT SITTING UP IN BED EATING SUPPER.
[2018-07-11 19:08] VITALS: BP 158/71
--- NOTE | 2018-07-11 19:15 | NUR ---
PT RESTING IN BED WITH EYES OPEN. ALERT AND ORIENTED X 3. PT REQUESTED ASSISTANCE MOVING HERSELF UP IN THE BED. I INSTRUCTED PT ON HOW TO DO IT, AND SHE DID THE TASK HERSELF WITHOUT DIFFICULTY. LEFT SHOULDER SLING IS ON AND INTACT. DRESSING IS CDI. LEFT FOOT BOOT IS OFF, AND PT STATES SHE WILL BE INFORMING THE DR THAT SHE HAS HAD IT ON 3 MONTHS AND WILL NOT WEAR IT ANYMORE. SR'S ARE UP X 2 IN BED. CALL LIGHT AND BEDSIDE TABLE ARE WITHIN EASY REACH.
--- NOTE | 2018-07-11 21:24 | NUR ---
PT IS RESTING IN BED TALKING ON THE TELEPHONE. NO ACUTE DISTRESS NOTED.
--- NOTE | 2018-07-12 01:51 | NUR ---
RESTING IN BED WITH NO DISTRESS NOTED. CALL LIGHT IN REACH.
--- NOTE | 2018-07-12 05:07 | NUR ---
PT RESTING IN BED WITH EYES OPEN. VOICED COMPLAINT OF FREQUENT COUGH. NONE HEARD BY ME. PT IS UPSET THAT SHE CANNOT HAVE HER ROBITUSSIN AGAIN IT IS TO SOON, AND WANTS TO SPEAK TO THE DR MCKEON THIS AM.
[2018-07-12 07:55] LABS: BASOPHILS 0.4 % (0-2); EOSINOPHILS 2.5 % (0-7); HEMOGLOBIN 12.2 g/dL (12-16); IMMATURE GRANULOCYTES 0.5 % (0-5); LYMPHOCYTES 33.8 % (15-50); MCH 29.7 pg (26.0-34.0); MCHC 32.1 g/dL (31.0-37.0); MCV 92.5 fL (80.0-100.0); MEAN PLATELET VOLUME 10.6 fL (7.4-10.4); MONOCYTES 6.4 % (2-11); NEUTROPHILS 56.4 % (40-80); PLATELET COUNT 242 10x3/uL (130-400); RBC 4.11 10x6/uL (4.00-5.40); RDW 14.7 % (11.5-14.5); WBC 5.6 10x3/uL (4.8-10.8)
[2018-07-12 07:58] LABS: ANION GAP 10.5 mmol/L (8-16); CALCIUM 8.2 mg/dL (8.5-10.1); CARBON DIOXIDE 27.4 mmol/L (21.0-32.0); CREATININE - SERUM 1.6 mg/dL (0.6-1.3); POTASSIUM - SERUM 4.9 mmol/L (3.5-5.1)
--- NOTE | 2018-07-12 08:00 | NUR ---
PATIENT IS ALERT/ORIENT. CALL LIGHT WITHIN REACH. VOICES NO NEEDS AT THIS TIME. WILL CONTINUE WITH PLAN OF CARE
[2018-07-12 08:16] VITALS: BP 134/42
--- NOTE | 2018-07-12 09:35 | NUR ---
PATIENT IN REHAB ROOM. WORKING WITH OCCUPATIONAL THERAPIST
--- NOTE | 2018-07-12 09:37 | NUR ---
RESTING QUIETLY IN ROOM AT THIS TIME. NO COMPALINTS.
--- NOTE | 2018-07-12 10:49 | NUR ---
THIS NURS CALLED ELOISE GARVIN, DR CID IN REGARDS TO SURGICAL CLIPS TO LEFT SHOULDER
--- NOTE | 2018-07-12 16:15 | NUR ---
PATIENT RESTING IN BED AFTER THERAPY. CALL LIGHT WITHIN REACH. AT BEDSIDE
--- NOTE | 2018-07-12 18:19 | NUR ---
PRN PAIN MEDICATION GIVEN FOR LEFT SHOULDER PAIN
--- NOTE | 2018-07-12 19:30 | NUR ---
PT IS RESTING IN BED WITH EYES OPEN. ALERT AND ORIENTED X3. DENIES ACUTE DISCOMFORT AT THIS TIME. PT IS VERY TALKATIVE. LEFT SHOULDER SLING IS ON AND INTACT. AIR STRIP DRESSING OVER INCISION IS CDI. PT REFUSING TO WEAR LEFT FOOT IMMOBILIZER. SR'S ARE UP X 2 IN BED. CALL LIGHT AND BEDSIDE TABLE ARE WITHIN EASY REACH.
--- NOTE | 2018-07-12 21:25 | NUR ---
PT IS RESTING IN BED COLORING IN A COLOR BOOK. NO NEEDS VOICED.
--- NOTE | 2018-07-13 00:30 | NUR ---
PT RESTING IN BED WITH EYES CLOSED.
--- NOTE | 2018-07-13 05:11 | NUR ---
PT ASLEEP NO NEEDS NOTED FLUIDS AND CALL LIGHT WITHIN REACH
[2018-07-13 06:30] LABS: BASOPHILS 0.3 % (0-2); EOSINOPHILS 3.4 % (0-7); HEMATOCRIT 36.9 % (36.0-48.0); HEMOGLOBIN 11.9 g/dL (12-16); IMMATURE GRANULOCYTES 0.3 % (0-5); LYMPHOCYTES 27.6 % (15-50); MCH 29.5 pg (26.0-34.0); MCHC 32.2 g/dL (31.0-37.0); MCV 91.3 fL (80.0-100.0); MEAN PLATELET VOLUME 10.5 fL (7.4-10.4); MONOCYTES 8.1 % (2-11); NEUTROPHILS 60.3 % (40-80); PLATELET COUNT 246 10x3/uL (130-400); RBC 4.04 10x6/uL (4.00-5.40); RDW 14.5 % (11.5-14.5)
[2018-07-13 06:57] LABS: ANION GAP 11.8 mmol/L (8-16); CALCIUM 8.2 mg/dL (8.5-10.1); CARBON DIOXIDE 26.5 mmol/L (21.0-32.0); CREATININE - SERUM 1.7 mg/dL (0.6-1.3); POTASSIUM - SERUM 4.3 mmol/L (3.5-5.1)
--- NOTE | 2018-07-13 08:00 | NUR ---
SHIFT ASSMT COMPLETED.BREAKFAST GIVEN.CL IN REACH.
[2018-07-13 08:16] VITALS: BP 123/34
--- NOTE | 2018-07-13 12:00 | NUR ---
SITTING UP IN WC.LUNCH GIVEN.
[2018-07-13 19:00] VITALS: BP 166/64
--- NOTE | 2018-07-13 19:44 | NUR ---
PT LYING IN BED RESTING WITH EYES CLOSED. BED IN LOW. SIDE RAILS X2. CALL LIGHT IN REACH. NO SIGNS OF DISTRESS OR PAIN AT THIS TIME. RESP EVEN AND UNLABORED. WILL CONTINUE TO MONITOR.
--- NOTE | 2018-07-14 02:12 | NUR ---
PT RESTING QUIETLY. CALL LIGHT IN REACH. NO SIGNS OF DISTRESS OR PAIN. EYES CLOSED
--- NOTE | 2018-07-14 02:23 | NUR ---
PT ASLEEP NO NEEDS NOTED FLUIDS AND CALL LIGHT WITHIN REACH
--- NOTE | 2018-07-14 06:22 | NUR ---
PT LYING IN BED. CALL LIGHT REACH. DENIES NEEDS AT THIS TIME
--- NOTE | 2018-07-14 08:00 | NUR ---
SHIFT ASSMT COMPLETED.DENIES NEEDS.
[2018-07-14 08:16] VITALS: BP 151/55
--- NOTE | 2018-07-14 11:49 | NUR ---
Pt is on a diabetic diet with 73% average po intake Noted BM yesterday and GI WDP Pt reports a hx of weight loss the past year however weight is stable now Pt does not like Glucerna Pt reports no nutrition related questions or concerns at this time RD following
--- NOTE | 2018-07-14 12:00 | NUR ---
EATING LUNCH.DENIES NEEDS.
--- NOTE | 2018-07-14 16:52 | NUR ---
CARE TEAM MEETING: PATIENT DOING WELL AND WILL DISCHARGE IN AM WITH HER SPOUSE. WILL CONTINUE TO FOLLOW WITH PATIENT.
[2018-07-14 19:00] VITALS: BP 144/44
--- NOTE | 2018-07-14 19:45 | NUR ---
RESTING IN BED. RESPIRATIONS UNLABORED. SLING IN PLACE TO LEFT ARM. NO DISTRESS NOTED. CALL LIGHT IN REACH.
--- NOTE | 2018-07-15 02:16 | NUR ---
RESTING IN BED WITH EYES CLOSED AND RESPIRATIONS UNLABORED. NO DISTRESS NOTED. CALL LIGHT IN REACH.
[2018-07-15 07:58] VITALS: BP 134/41
[2018-07-15] MEDS ORDERED: TIMOPTIC 0.5 % O5 ML OP (08:55)
[2018-07-15] MEDS ORDERED: FLORAJEN3 CAPS460 MG PO (08:55)
--- NOTE | 2018-07-15 10:07 | NUR ---
PATIENT DISCHARGING HOME TODAY WITH FAMILY.[facility] WILL RESUME THERAPY AT HOME. NO NEW DME NEEDED AT THIS TIME. DR. LAMB 07/21/18 @ 11:00, DR. CID 07/20/18 @ 10:45. PATIENT CHOICE FORM FOR HOME HEALTH AND [facility] FORMS SIGNED, COPY GIVEN TO PATIENT AND FILED IN CHART. DISCHARGE INSTRUCTIONS WITH [facility] FAXED TO PCP AND TO HOME HEALTH.
== END 2018-07-15 11:15 | disposition home health service (06) | DRG 70 ==
LOC: D.REHAB 17:27
PROVIDERS: Family Medicine; ADMIT Emergency Medicine; ATTEND Emergency Medicine
DX: G93.41 Metabolic encephalopathy (principal); J18.9 Pneumonia, unspecified organism; D62 Acute posthemorrhagic anemia; I50.22 Chronic systolic (congestive) heart failure; E87.1 Hypo-osmolality and hyponatremia; N17.9 Acute kidney failure, unspecified; N39.0 Urinary tract infection, site not specified; I11.0 Hypertensive heart disease with heart failure; I48.91 Unspecified atrial fibrillation; G25.81 Restless legs syndrome; E87.5 Hyperkalemia; E78.5 Hyperlipidemia, unspecified; E83.42 Hypomagnesemia; E11.65 Type 2 diabetes mellitus with hyperglycemia; Y95 Nosocomial condition; J45.909 Unspecified asthma, uncomplicated; I27.20 Pulmonary hypertension, unspecified; E03.9 Hypothyroidism, unspecified

== ENCOUNTER → 2018-10-27 13:15 | Outpatient (CLI) | payer MEDICARE, OTHER ==
[2018-06-30 13:11] VITALS: BMI 23.9
[~2018-10-27 13:15] MED LIST changes: +FLORAJEN3 CAPS460 MG PO; +TIMOPTIC 0.5 % O5 ML OP
== END | disposition home or self-care (01) ==
LOC: D.CT 10-26 14:30
PROVIDERS: ATTEND Clinical Nurse Specialist Family Health
DX: M25.512 Pain in left shoulder (principal)